=== PATIENT | male | born 1965 | race African-American/Black ===

== ENCOUNTER 2016-12-13 02:49 | Emergency (ER) | payer OTHER ==
[~2016-12-13] VITALS: Ht 172.7 cm; Wt 81.8 kg
[~2016-12-13 02:49] MED LIST: LISI-618 PO; OMEP20CA4 PO; QUET25TA PO
[2016-12-13 04:46] LABS: BASOPHILS % (AUTO) 0.2 % (0.0-2.0); EOSINOPHILS % (AUTO) 1.6 % (1.0-6.0); HEMATOCRIT 30.3 % (41-53); HEMOGLOBIN 9.4 g/dL (13.5-17.5); LYMPHOCYTES % (AUTO) 14.2 % (22.0-44.0); MEAN CORPUSCULAR HEMOGLOBIN 25.6 pg (26.0-34.0); MEAN CORPUSCULAR HGB CONC 31.1 G/dL (31.0-37.0); MEAN CORPUSCULAR VOLUME 83 fL (80-100); MONOCYTES # (AUTO) 0.6 K/uL (0.1-1.0); MONOCYTES % (AUTO) 8.7 % (2.0-9.0); NEUTROPHILS # (AUTO) 5.2 K/uL (1.8-7.7); NEUTROPHILS % (AUTO) 75.3 % (40.0-70.0); PLATELET COUNT (AUTO) 319 K/uL (150-450); RED BLOOD CELL COUNT(AUTO) 3.67 MIL/uL (4.50-5.90); RED CELL DISTRIBUTION WIDTH 18.7 % (11.5-14.5)
[2016-12-13 04:48] LABS: ANION GAP 5 mmol/L (8-16); CALCIUM, TOTAL 8.5 mg/dL (8.8-10.5); CARBON DIOXIDE 31 mmol/L (22-29); CHLORIDE 103 mmol/L (98-107); CREATININE 1.54 mg/dL (0.60-1.30); GLOMERULAR FILTR. RATE CALC 58 mL/min (>60); POTASSIUM 3.8 mmol/L (3.5-5.1); SODIUM SERUM 139 mmol/L (136-145); UREA NITROGEN, BLOOD 13 mg/dL (7-18)
[2016-12-13 04:58] LABS: ALANINE AMINOTRANSFERASE 34 U/L (12-78); ALBUMIN 3.5 g/dL (3.4-5.0); ASPARTATE AMINOTRANSFERASE 25 U/L (15-37); BILIRUBIN,TOTAL 0.2 mg/dL (0.1-1.0); TOTAL PROTEIN, SERUM 7.4 g/dL (6.4-8.2)
[2016-12-13 05:02] VITALS: BP 130/87
[2016-12-13 05:12] LABS: B-TYPE NATRIURETIC PEPTIDE 13 pg/mL (0-100)
[2016-12-13] MEDS ORDERED: LORazepam 2 MG TABLET PO ONE (05:15)
== END 2016-12-13 05:21 | disposition home or self-care (01) ==
LOC: EMS 02:51
DX: F25.9 Schizoaffective disorder, unspecified (principal); F41.9 Anxiety disorder, unspecified; F17.200 Nicotine dependence, unspecified, uncomplicated
CPT/HCPCS: 36415; 71010; 80053; 80307; 83880; 84484; 85025; 93005; 99285; G0480

== ENCOUNTER 2017-03-03 16:12 | Inpatient (IN) | payer MEDICAID, OTHER ==
[~2017-03-03] VITALS: Ht 172.7 cm; Wt 106.7 kg
[2017-03-03 20:32] LABS: BASOPHILS % (AUTO) 0.4 % (0.0-2.0); EOSINOPHILS % (AUTO) 1.3 % (1.0-6.0); HEMATOCRIT 31.1 % (41-53); HEMOGLOBIN 10.1 g/dL (13.5-17.5); LYMPHOCYTES # (AUTO) 1.5 K/uL (1.0-4.8); MEAN CORPUSCULAR HGB CONC 32.6 G/dL (31.0-37.0); MEAN CORPUSCULAR VOLUME 80 fL (80-100); MONOCYTES # (AUTO) 0.5 K/uL (0.1-1.0); MONOCYTES % (AUTO) 6.9 % (2.0-9.0); NEUTROPHILS # (AUTO) 4.9 K/uL (1.8-7.7); NEUTROPHILS % (AUTO) 70.4 % (40.0-70.0); PLATELET COUNT (AUTO) 251 K/uL (150-450); RED BLOOD CELL COUNT(AUTO) 3.89 MIL/uL (4.50-5.90); RED CELL DISTRIBUTION WIDTH 19.9 % (11.5-14.5)
[2017-03-03 20:39] LABS: ANION GAP 9 mmol/L (8-16); CALCIUM, TOTAL 9.3 mg/dL (8.8-10.5); CARBON DIOXIDE 28 mmol/L (22-29); CHLORIDE 105 mmol/L (98-107); GLOMERULAR FILTR. RATE CALC > 60 mL/min (>60); POTASSIUM 3.9 mmol/L (3.5-5.1); SODIUM SERUM 142 mmol/L (136-145); UREA NITROGEN, BLOOD 10 mg/dL (7-18)
[2017-03-03 20:45] LABS: ALANINE AMINOTRANSFERASE 27 U/L (12-78); ALBUMIN 3.9 g/dL (3.4-5.0); ASPARTATE AMINOTRANSFERASE 29 U/L (15-37); BILIRUBIN,TOTAL 0.3 mg/dL (0.1-1.0)
[2017-03-03 21:27] LABS: RBC MORPHOLOGY COMMENT ABNORMAL RBC MORPH
[2017-03-03] MEDS ORDERED: ZOLPIDEM TARTRATE 10 MG TABLET PO PRN (21:30)
[2017-03-03] MEDS: QUEtiapine FUMARATE 300 MG TABLET PO SCH (21:54)
[2017-03-03 22:01] LABS: CHOL/HDL RATIO 2.4 (4.2-7.3); THYROID STIMULATING HORMONE 1.58 uIU/mL (0.36-3.74)
[2017-03-04 01:35] VITALS: BP 136/91
[2017-03-04] MEDS: LORazepam 2 MG TABLET PO PRN (07:40)
[2017-03-04] MEDS: ChlorproMAZINE HCL 100 MG TABLET PO PRN (07:40)
[2017-03-04 09:16] VITALS: BP 126/89
[2017-03-04] MEDS ORDERED: IBUPROFEN 600 MG TABLET PO PRN (11:15)
[2017-03-04] MEDS ORDERED: MAGNESIUM HYDROXIDE SUSPENSION 30 ML UDCUP PO PRN (11:15)
[2017-03-04] MEDS ORDERED: BACITRACIN 28.4 GM OINTMENT TP PRN (11:15)
[2017-03-04] MEDS ORDERED: ALBUTEROL SULFATE HFA 90 MCG/PUFF 8 GM INHALER IH PRN (11:15)
[2017-03-04] MEDS ORDERED: LOPERAMIDE HCL 2 MG CAPSULE PO PRN (11:15)
[2017-03-04] MEDS ORDERED: ACETAMINOPHEN 325 MG TABLET PO PRN (11:15)
[2017-03-04] MEDS ORDERED: BENZOCAINE/MENTHOL LOZENGE [8 LOZENGES/PACKET] MM PRN (11:15)
[2017-03-04] MEDS ORDERED: PETROLATUM,WHITE 71 GM JELLY TP PRN (11:15)
[2017-03-04] MEDS ORDERED: ONDANSETRON HCL 4 MG TABLET PO PRN (11:15)
[2017-03-04] MEDS ORDERED: CloNIDine HCL 0.1 MG TABLET PO PRN (11:15)
[2017-03-04] MEDS ORDERED: MAG HYDROX/AL HYDROX/SIMETH ES 30 ML SUSPENSION UDCUP PO PRN (11:15)
[2017-03-04] MEDS: FERROUS SULFATE 325 MG EC TABLET PO SCH (17:07)
[2017-03-04 18:43] VITALS: BP 149/99
[2017-03-04] MEDS: QUEtiapine FUMARATE 300 MG TABLET PO SCH (20:27)
[2017-03-05] MEDS: FERROUS SULFATE 325 MG EC TABLET PO SCH ×2 (06:36→17:13)
[2017-03-05 08:31] VITALS: BP 110/72
[2017-03-05] MEDS: LORazepam 2 MG TABLET PO PRN (10:18)
[2017-03-05] MEDS: TERBINAFINE HCL 1% 30 GM CREAM TP SCH (10:19)
[2017-03-05] MEDS: CHOLECALCIFEROL (VIT D3) 1,000 UNITS TABLET PO SCH (10:19)
[2017-03-05] MEDS ORDERED: FluPHENAZine HCL 2.5 MG/ML INJ IM ONE (20:30)
[2017-03-05] MEDS ORDERED: LORazepam 2 MG/ML VIAL IM ONE (20:30)
[2017-03-05] MEDS ORDERED: DiphenhydrAMINE HCL 50 MG/ML VIAL IM ONE (20:30)
[2017-03-05 20:56] VITALS: BP 119/74
[2017-03-05] MEDS ORDERED: QUEtiapine FUMARATE 200 MG TABLET PO SCH (21:00)
[2017-03-06] MEDS: FERROUS SULFATE 325 MG EC TABLET PO SCH ×2 (07:01→16:48)
[2017-03-06] MEDS: CHOLECALCIFEROL (VIT D3) 1,000 UNITS TABLET PO SCH (08:14)
[2017-03-06] MEDS: TERBINAFINE HCL 1% 30 GM CREAM TP SCH (08:14)
[2017-03-06 08:37] VITALS: BP 152/93
[2017-03-06 08:46] VITALS: BP 157/93
[2017-03-06] MEDS: QUEtiapine FUMARATE 200 MG TABLET PO SCH (20:02)
[2017-03-07] MEDS: FERROUS SULFATE 325 MG EC TABLET PO SCH ×2 (07:08→16:34)
[2017-03-07 08:00] VITALS: BP 90/60
[2017-03-07] MEDS: CHOLECALCIFEROL (VIT D3) 1,000 UNITS TABLET PO SCH (08:14)
[2017-03-07] MEDS: LORazepam 2 MG TABLET PO PRN (08:15)
[2017-03-07] MEDS: TERBINAFINE HCL 1% 30 GM CREAM TP SCH (12:25)
[2017-03-07 16:00] VITALS: BP 130/93
[2017-03-07] MEDS: QUEtiapine FUMARATE 200 MG TABLET PO SCH (20:39)
[2017-03-08 00:04] VITALS: BP 143/82
[2017-03-08] MEDS: FERROUS SULFATE 325 MG EC TABLET PO SCH ×2 (06:51→16:31)
[2017-03-08] MEDS: LORazepam 2 MG TABLET PO PRN ×2 (07:44→16:31)
[2017-03-08] MEDS: CHOLECALCIFEROL (VIT D3) 1,000 UNITS TABLET PO SCH (08:07)
[2017-03-08 09:00] VITALS: BP 136/100
[2017-03-08] MEDS: TERBINAFINE HCL 1% 30 GM CREAM TP SCH (13:02)
[2017-03-08 13:51] VITALS: BP 128/105
[2017-03-08 16:00] VITALS: BP 153/90
[2017-03-09] MEDS: FERROUS SULFATE 325 MG EC TABLET PO SCH ×2 (07:04→16:46)
[2017-03-09 08:03] VITALS: BP 143/99
[2017-03-09] MEDS: CHOLECALCIFEROL (VIT D3) 1,000 UNITS TABLET PO SCH (09:29)
[2017-03-09] MEDS: TERBINAFINE HCL 1% 30 GM CREAM TP SCH (09:29)
[2017-03-09 17:24] VITALS: BP 142/95
[2017-03-09] MEDS: QUEtiapine FUMARATE 300 MG TABLET PO SCH (20:47)
[2017-03-10] MEDS: FERROUS SULFATE 325 MG EC TABLET PO SCH ×2 (07:00→17:30)
[2017-03-10] MEDS: TERBINAFINE HCL 1% 30 GM CREAM TP SCH (07:54)
[2017-03-10] MEDS: CHOLECALCIFEROL (VIT D3) 1,000 UNITS TABLET PO SCH (07:54)
[2017-03-10 08:11] VITALS: BP 146/81
[2017-03-10] MEDS: LORazepam 2 MG TABLET PO PRN (15:42)
[2017-03-10 16:38] VITALS: BP 133/89
[2017-03-10] MEDS: QUEtiapine FUMARATE 300 MG TABLET PO SCH (20:00)
[2017-03-11] MEDS: FERROUS SULFATE 325 MG EC TABLET PO SCH ×2 (07:03→17:12)
[2017-03-11 08:00] VITALS: BP 144/79
[2017-03-11] MEDS: CHOLECALCIFEROL (VIT D3) 1,000 UNITS TABLET PO SCH (10:19)
[2017-03-11] MEDS: ChlorproMAZINE HCL 100 MG TABLET PO PRN (10:19)
[2017-03-11] MEDS: TERBINAFINE HCL 1% 30 GM CREAM TP SCH (10:19)
[2017-03-11] MEDS: LORazepam 2 MG TABLET PO PRN ×2 (10:19→17:29)
[2017-03-11 17:30] VITALS: BP 133/91
[2017-03-11] MEDS: QUEtiapine FUMARATE 300 MG TABLET PO SCH (21:29)
[2017-03-11] MEDS: OXcarbazepine 300 MG TABLET PO SCH (21:30)
[2017-03-12] MEDS: FERROUS SULFATE 325 MG EC TABLET PO SCH ×2 (06:52→16:56)
[2017-03-12] MEDS: CHOLECALCIFEROL (VIT D3) 1,000 UNITS TABLET PO SCH (08:09)
[2017-03-12] MEDS: ChlorproMAZINE HCL 100 MG TABLET PO PRN (08:09)
[2017-03-12 09:07] VITALS: BP 143/89
[2017-03-12] MEDS: TERBINAFINE HCL 1% 30 GM CREAM TP SCH (10:42)
[2017-03-12 16:00] VITALS: BP 150/91
[2017-03-12] MEDS: LORazepam 2 MG TABLET PO PRN (16:18)
[2017-03-12] MEDS: OXcarbazepine 300 MG TABLET PO SCH (20:59)
[2017-03-12] MEDS: QUEtiapine FUMARATE 300 MG TABLET PO SCH (20:59)
[2017-03-13 05:59] VITALS: BP 136/92
[2017-03-13] MEDS: FERROUS SULFATE 325 MG EC TABLET PO SCH (06:53)
[2017-03-13] MEDS: CHOLECALCIFEROL (VIT D3) 1,000 UNITS TABLET PO SCH (08:42)
[2017-03-13] MEDS: TERBINAFINE HCL 1% 30 GM CREAM TP SCH (08:42)
[2017-03-13 08:46] VITALS: BP 149/97
[2017-03-13] MEDS ORDERED: OXCA300T PO (12:02)
[2017-03-13] MEDS ORDERED: FERR-89 PO (12:05)
[2017-03-13] MEDS ORDERED: VITAD1000 PO (12:05)
[2017-03-13] MEDS ORDERED: TERB250 PO (12:06)
[2017-03-13] MEDS ORDERED: TERB15CR18 TP (12:08)
[2017-03-13] MEDS ORDERED: TERB250T4 PO (12:08)
[2017-03-13] MEDS ORDERED: QUET300T2 PO (12:13)
[2017-03-13] MEDS ORDERED: LISI-662 PO (13:07)
[2017-03-13] MEDS ORDERED: OMEP20 PO (13:08)
== END 2017-03-13 13:00 | disposition home or self-care (01) | DRG 750 ==
LOC: EMS 16:14 → 3EI 22:09 → 3EC 03-05 22:59
PROVIDERS: ADMIT Psychiatry & Neurology Psychiatry; ATTEND Psychiatry & Neurology Psychiatry
DX: F20.1 Disorganized schizophrenia (principal); I10 Essential (primary) hypertension; Z91.19 Patient's noncompliance with other medical treatment and regimen; E55.9 Vitamin D deficiency, unspecified; B35.3 Tinea pedis; F17.200 Nicotine dependence, unspecified, uncomplicated; E66.9 Obesity, unspecified; D50.9 Iron deficiency anemia, unspecified; G47.00 Insomnia, unspecified; K21.9 Gastro-esophageal reflux disease without esophagitis; K59.00 Constipation, unspecified; M79.671 Pain in right foot; M79.672 Pain in left foot; R73.03 Prediabetes; Z56.0 Unemployment, unspecified; Z71.6 Tobacco abuse counseling; Z68.35 Body mass index [BMI] 35.0-35.9, adult; Z79.899 Other long term (current) drug therapy
CPT/HCPCS: 84439; 84443; 99285; G0480; J1200; J2060; J3490; Q0162

== ENCOUNTER 2017-06-16 15:24 | Emergency (ER) | payer MEDICAID, OTHER ==
[~2017-06-16] VITALS: Ht 188 cm; Wt 95.5 kg
[~2017-06-16 15:24] MED LIST changes: +FERR-89 PO; -LISI-618 PO; +LISI-662 PO; +OMEP20 PO; -OMEP20CA4 PO; +OXCA300T PO; -QUET25TA PO; +QUET300T2 PO; +TERB15CR18 TP; +VITAD1000 PO
[2017-06-16 16:19] LABS: BASOPHILS % (AUTO) 0.3 % (0.0-2.0); EOSINOPHILS % (AUTO) 2.4 % (1.0-6.0); HEMATOCRIT 37.5 % (41-53); HEMOGLOBIN 12.5 g/dL (13.5-17.5); LYMPHOCYTES # (AUTO) 1.4 K/uL (1.0-4.8); LYMPHOCYTES % (AUTO) 32.3 % (22.0-44.0); MEAN CORPUSCULAR HEMOGLOBIN 29.7 pg (26.0-34.0); MEAN CORPUSCULAR HGB CONC 33.3 G/dL (31.0-37.0); MEAN CORPUSCULAR VOLUME 89 fL (80-100); MONOCYTES # (AUTO) 0.4 K/uL (0.1-1.0); NEUTROPHILS # (AUTO) 2.5 K/uL (1.8-7.7); PLATELET COUNT (AUTO) 244 K/uL (150-450); RED BLOOD CELL COUNT(AUTO) 4.21 MIL/uL (4.50-5.90); RED CELL DISTRIBUTION WIDTH 19.1 % (11.5-14.5); WHITE BLOOD COUNT (AUTO) 4.4 K/uL (4.5-11.0)
[2017-06-16] MEDS ORDERED: HALOPERIDOL 5 MG TABLET PO ONE (16:30)
[2017-06-16] MEDS ORDERED: LORazepam 2 MG TABLET PO ONE (16:30)
[2017-06-16] MEDS ORDERED: RAPID SEQUENCE KIT [RSI] 1 EACH KIT ONE ×2 (16:34)
[2017-06-16] MEDS ORDERED: SUCCINYLCHOLINE CHLORIDE 20 MG/ML 10 ML VIAL ONE (16:35)
[2017-06-16 16:37] LABS: ANION GAP 9 mmol/L (8-16); CALCIUM, TOTAL 8.7 mg/dL (8.8-10.5); CARBON DIOXIDE 29 mmol/L (22-29); CHLORIDE 100 mmol/L (98-107); CREATININE 1.11 mg/dL (0.60-1.30); GLOMERULAR FILTR. RATE CALC > 60 mL/min (>60); POTASSIUM 3.5 mmol/L (3.5-5.1); SODIUM SERUM 138 mmol/L (136-145); UREA NITROGEN, BLOOD 11 mg/dL (7-18)
[2017-06-16 16:44] LABS: ALANINE AMINOTRANSFERASE 28 U/L (12-78); ALBUMIN 3.6 g/dL (3.4-5.0); ASPARTATE AMINOTRANSFERASE 25 U/L (15-37); BILIRUBIN,TOTAL 0.4 mg/dL (0.1-1.0); TOTAL PROTEIN, SERUM 7.2 g/dL (6.4-8.2)
[2017-06-16 18:08] VITALS: BP 148/94
== END 2017-06-16 18:46 | disposition home or self-care (01) ==
LOC: EMS 15:27
DX: F20.9 Schizophrenia, unspecified (principal); F15.129 Other stimulant abuse with intoxication, unspecified; Z77.22 Contact with and (suspected) exposure to environmental tobacco smoke (acute) (chronic)
CPT/HCPCS: 36415; 80053; 80307; 85025; 99284; G0480; J0330

== ENCOUNTER 2018-12-28 13:33 | Inpatient (IN) | payer MEDICAID, OTHER ==
[~2018-12-28] VITALS: Ht 188 cm; Wt 87.7 kg
[~2018-12-28 13:33] MED LIST changes: -OXCA300T PO; +OXCA300T29 PO
[2018-12-28 14:45] LABS: BASOPHILS % (AUTO) 0.1 % (0.0-2.0); EOSINOPHILS % (AUTO) 0.1 % (1.0-6.0); HEMATOCRIT 31.6 % (41-53); HEMOGLOBIN 10.5 g/dL (13.5-17.5); LYMPHOCYTES # (AUTO) 1.1 K/uL (1.0-4.8); LYMPHOCYTES % (AUTO) 14.5 % (22.0-44.0); MEAN CORPUSCULAR HEMOGLOBIN 29.5 pg (26.0-34.0); MEAN CORPUSCULAR HGB CONC 33.2 G/dL (31.0-37.0); MEAN CORPUSCULAR VOLUME 89 fL (80-100); MONOCYTES # (AUTO) 0.5 K/uL (0.1-1.0); MONOCYTES % (AUTO) 6.6 % (2.0-9.0); NEUTROPHILS # (AUTO) 5.7 K/uL (1.8-7.7); NEUTROPHILS % (AUTO) 78.7 % (40.0-70.0); PLATELET COUNT (AUTO) 239 K/uL (150-450); RED BLOOD CELL COUNT(AUTO) 3.54 MIL/uL (4.50-5.90); RED CELL DISTRIBUTION WIDTH 16.1 % (11.5-14.5)
[2018-12-28 14:57] LABS: B-TYPE NATRIURETIC PEPTIDE 220 pg/mL (0-100)
[2018-12-28 14:58] LABS: ANION GAP 8 mmol/L (8-16); CALCIUM, TOTAL 8.7 mg/dL (8.8-10.5); CARBON DIOXIDE 32 mmol/L (22-29); CHLORIDE 103 mmol/L (98-107); CREATININE 1.27 mg/dL (0.60-1.30); GLOMERULAR FILTR. RATE CALC > 60 mL/min (>60); GLUCOSE,RANDOM 91 mg/dL (70-110); POTASSIUM 3.1 mmol/L (3.5-5.1); SODIUM SERUM 143 mmol/L (136-145); UREA NITROGEN, BLOOD 59 mg/dL (7-18)
[2018-12-28 15:00] LABS: INR 1.1 (0.9-1.1); PROTHROMBIN TIME 11.1 SEC (9.4-11.6)
[2018-12-28 15:04] LABS: ALANINE AMINOTRANSFERASE 28 U/L (12-78); ALBUMIN 3.2 g/dL (3.4-5.0); ALKALINE PHOSPHATASE 65 U/L (46-116); ASPARTATE AMINOTRANSFERASE 31 U/L (15-37); BILIRUBIN,TOTAL 0.4 mg/dL (0.1-1.0); TOTAL PROTEIN, SERUM 6.7 g/dL (6.4-8.2)
[2018-12-28 15:19] LABS: APPEARANCE,URINE CLEAR (CLEAR); BILIRUBIN,URINE NEGATIVE (NEGATIVE); GLUCOSE, URINE (UA) NEGATIVE (NEGATIVE); KETONES,URINE NEGATIVE (NEGATIVE); LEUKOCYTE ESTERASE ,URINE NEGATIVE (NEGATIVE); NITRATE,URINE NEGATIVE (NEGATIVE); OCCULT BLOOD,URINE NEGATIVE (NEGATIVE); PROTEIN,URINE NEGATIVE (NEGATIVE)
[2018-12-28 15:22] LABS: AMPHET/METH SCREEN,URINE NEGATIVE (NEGATIVE); BARBITURATE SCREEN, URINE NEGATIVE (NEGATIVE); BENZODIAZEPINES SCREEN,URINE NEGATIVE (NEGATIVE); CANNABINOID SCREEN,URINE NEGATIVE (NEGATIVE); COCAINE SCREEN,URINE NEGATIVE (NEGATIVE); METHADONE SCREEN, URINE NEGATIVE (NEGATIVE); OPIATE SCREEN,URINE NEGATIVE (NEGATIVE)
[2018-12-28 15:25] LABS: PHENCYCLIDINE SCREEN,URINE NEGATIVE (NEGATIVE)
[2018-12-28] MEDS ORDERED: POTASSIUM CHLORIDE 20 MEQ ER TABLET PO ONE (16:00)
[2018-12-28] MEDS ORDERED: QUEtiapine FUMARATE 100 MG TABLET PO ONE (17:15)
[2018-12-28] MEDS ORDERED: ChlorproMAZINE HCL 100 MG TABLET PO PRN (17:45)
[2018-12-28] MEDS ORDERED: ZOLPIDEM TARTRATE 5 MG TABLET PO PRN (17:45)
[2018-12-28] MEDS ORDERED: LORazepam 2 MG/ML VIAL IM ONE (20:15)
[2018-12-28] MEDS ORDERED: DiphenhydrAMINE HCL 50 MG/ML VIAL IM ONE (20:15)
[2018-12-28] MEDS ORDERED: HALOPERIDOL LACTATE 5 MG/ML VIAL IM ONE (20:15)
[2018-12-28] MEDS ORDERED: IBUPROFEN 600 MG TABLET PO PRN (22:00)
[2018-12-28] MEDS ORDERED: ACETAMINOPHEN 325 MG TABLET PO PRN (22:00)
[2018-12-28] MEDS ORDERED: ONDANSETRON HCL 4 MG TABLET PO PRN (22:00)
[2018-12-28] MEDS ORDERED: LOPERAMIDE HCL 2 MG CAPSULE PO PRN (22:00)
[2018-12-28] MEDS ORDERED: MAGNESIUM HYDROXIDE SUSPENSION 30 ML UDCUP PO PRN (22:00)
[2018-12-28] MEDS ORDERED: MAG HYDROX/AL HYDROX/SIMETH ES 30 ML SUSPENSION UDCUP PO PRN (22:00)
[2018-12-28] MEDS ORDERED: BACITRACIN 28.4 GM OINTMENT TP PRN (22:00)
[2018-12-28] MEDS ORDERED: PETROLATUM,WHITE 28 GM JELLY TP PRN (22:00)
[2018-12-28] MEDS ORDERED: BENZOCAINE/MENTHOL LOZENGE MM PRN (22:00)
[2018-12-28] MEDS ORDERED: ALBUTEROL SULFATE HFA 90 MCG/PUFF 8 GM INHALER IH PRN (22:00)
[2018-12-28] MEDS ORDERED: CloNIDine HCL 0.1 MG TABLET PO PRN (22:00)
[2018-12-28] MEDS: QUEtiapine FUMARATE 300 MG TABLET PO SCH (22:19)
[2018-12-29 06:39] VITALS: BP 100/69
[2018-12-29 08:09] LABS: ANION GAP 7 mmol/L (8-16); CALCIUM, TOTAL 8.6 mg/dL (8.8-10.5); CARBON DIOXIDE 34 mmol/L (22-29); CHLORIDE 103 mmol/L (98-107); CHOL/HDL RATIO 2.7 (4.2-7.3); CHOLESTEROL 110 mg/dL (131-200); CREATININE 1.24 mg/dL (0.60-1.30); GLOMERULAR FILTR. RATE CALC > 60 mL/min (>60); GLUCOSE,RANDOM 82 mg/dL (70-110); HDL CHOLESTEROL 41 mg/dL (40-60); LDL CHOL (CALC.) 61 mg/dL (0-130); POTASSIUM 3.3 mmol/L (3.5-5.1); SODIUM SERUM 144 mmol/L (136-145); TRIGLYCERIDES 39 mg/dL (15-150); UREA NITROGEN, BLOOD 38 mg/dL (7-18)
[2018-12-29] MEDS: DOCUSATE SODIUM 100 MG CAPSULE PO SCH (08:29)
[2018-12-29] MEDS: OMEPRAZOLE 20 MG CAPSULE PO SCH (08:29)
[2018-12-29] MEDS ORDERED: POTASSIUM CHLORIDE 20 MEQ ER TABLET PO ONE (09:30)
[2018-12-29 16:12] VITALS: BP 129/70
[2018-12-29] MEDS: LORazepam 2 MG TABLET PO PRN ×2 (16:18→20:22)
[2018-12-29] MEDS: QUEtiapine FUMARATE 300 MG TABLET PO SCH (20:22)
[2018-12-30 08:00] VITALS: BP 116/66
[2018-12-30] MEDS: DOCUSATE SODIUM 100 MG CAPSULE PO SCH (08:13)
[2018-12-30] MEDS: OMEPRAZOLE 20 MG CAPSULE PO SCH (08:13)
[2018-12-30] MEDS: CHOLECALCIFEROL (VIT D3) 1,000 UNITS TABLET PO SCH (08:13)
[2018-12-30] MEDS: LORazepam 2 MG TABLET PO PRN (16:22)
[2018-12-30 17:27] VITALS: BP 136/80
[2018-12-30] MEDS: QUEtiapine FUMARATE 300 MG TABLET PO SCH (20:37)
[2018-12-30] MEDS: RisperiDONE 1 MG TABLET PO SCH (20:37)
[2018-12-31 06:15] VITALS: BP 142/89
[2018-12-31] MEDS: LORazepam 2 MG TABLET PO PRN ×2 (08:21→16:47)
[2018-12-31] MEDS: RisperiDONE 1 MG TABLET PO SCH (08:21)
[2018-12-31] MEDS: DOCUSATE SODIUM 100 MG CAPSULE PO SCH (08:21)
[2018-12-31] MEDS: OMEPRAZOLE 20 MG CAPSULE PO SCH (08:21)
[2018-12-31] MEDS: CHOLECALCIFEROL (VIT D3) 1,000 UNITS TABLET PO SCH (08:21)
[2018-12-31 08:29] VITALS: BP 124/69
[2018-12-31] MEDS ORDERED: HydrOXYzine PAMOATE 50 MG CAPSULE PO PRN (10:00)
[2018-12-31] MEDS ORDERED: GuaiFENesin/D-METHORPHAN [SUGAR-FREE] 200-20MG/10 ML SYRUP UDCUP PO PRN (10:00)
[2018-12-31] MEDS ORDERED: LOPERAMIDE HCL 2 MG CAPSULE PO PRN (10:00)
[2018-12-31 16:05] VITALS: BP 139/75
[2018-12-31] MEDS: THIAMINE HCL 100 MG TABLET PO SCH (16:47)
[2018-12-31] MEDS: QUEtiapine FUMARATE 300 MG TABLET PO SCH (20:11)
[2019-01-01 05:56] VITALS: BP 136/72
[2019-01-01 08:11] VITALS: BP 140/99
[2019-01-01] MEDS: FOLIC ACID 1 MG TABLET PO SCH (08:21)
[2019-01-01] MEDS: DOCUSATE SODIUM 100 MG CAPSULE PO SCH (08:21)
[2019-01-01] MEDS: MULTIVITAMINS WITH MINERALS, THERAPEUTIC TABLET PO SCH (08:21)
[2019-01-01] MEDS: OMEPRAZOLE 20 MG CAPSULE PO SCH (08:22)
[2019-01-01] MEDS: LORazepam 2 MG TABLET PO PRN ×2 (08:22→14:37)
[2019-01-01] MEDS: THIAMINE HCL 100 MG TABLET PO SCH ×2 (08:22→16:37)
[2019-01-01] MEDS: CHOLECALCIFEROL (VIT D3) 1,000 UNITS TABLET PO SCH (08:22)
[2019-01-01 16:05] VITALS: BP 140/82
[2019-01-01] MEDS: QUEtiapine FUMARATE 300 MG TABLET PO SCH (20:22)
[2019-01-01] MEDS: DiphenhydrAMINE HCL 25 MG CAPSULE PO SCH (20:22)
[2019-01-01] MEDS ORDERED: RisperiDONE 2 MG TABLET PO SCH (21:00)
[2019-01-02 00:43] VITALS: BP 141/93
[2019-01-02] MEDS: OMEPRAZOLE 20 MG CAPSULE PO SCH (08:17)
[2019-01-02] MEDS: LORazepam 2 MG TABLET PO PRN ×3 (08:17→20:37)
[2019-01-02] MEDS: DOCUSATE SODIUM 100 MG CAPSULE PO SCH (08:18)
[2019-01-02] MEDS: THIAMINE HCL 100 MG TABLET PO SCH ×2 (08:18→16:17)
[2019-01-02] MEDS: FOLIC ACID 1 MG TABLET PO SCH (08:18)
[2019-01-02] MEDS: MULTIVITAMINS WITH MINERALS, THERAPEUTIC TABLET PO SCH (08:18)
[2019-01-02] MEDS: CHOLECALCIFEROL (VIT D3) 1,000 UNITS TABLET PO SCH (08:18)
[2019-01-02 08:45] VITALS: BP 129/73
[2019-01-02 16:58] VITALS: BP 136/90
[2019-01-02] MEDS: QUEtiapine FUMARATE 200 MG TABLET PO SCH (20:37)
[2019-01-02] MEDS: DiphenhydrAMINE HCL 25 MG CAPSULE PO SCH (20:37)
[2019-01-02] MEDS ORDERED: RisperiDONE 3 MG TABLET PO SCH (21:00)
[2019-01-03 06:22] VITALS: BP 139/81
[2019-01-03] MEDS: CHOLECALCIFEROL (VIT D3) 1,000 UNITS TABLET PO SCH (08:03)
[2019-01-03] MEDS: MULTIVITAMINS WITH MINERALS, THERAPEUTIC TABLET PO SCH (08:03)
[2019-01-03] MEDS: THIAMINE HCL 100 MG TABLET PO SCH ×2 (08:04→16:15)
[2019-01-03] MEDS: DOCUSATE SODIUM 100 MG CAPSULE PO SCH (08:04)
[2019-01-03] MEDS: OMEPRAZOLE 20 MG CAPSULE PO SCH (08:04)
[2019-01-03] MEDS: FOLIC ACID 1 MG TABLET PO SCH (08:05)
[2019-01-03 08:18] VITALS: BP 126/83
[2019-01-03 16:06] VITALS: BP 142/89
[2019-01-03] MEDS: LORazepam 2 MG TABLET PO PRN (16:15)
[2019-01-03] MEDS: QUEtiapine FUMARATE 200 MG TABLET PO SCH (20:05)
[2019-01-03] MEDS: DiphenhydrAMINE HCL 25 MG CAPSULE PO SCH (20:05)
[2019-01-03] MEDS ORDERED: RisperiDONE 4 MG TABLET PO SCH (21:00)
[2019-01-04 06:21] VITALS: BP 133/86
[2019-01-04 08:14] VITALS: BP 117/82
[2019-01-04] MEDS: MULTIVITAMINS WITH MINERALS, THERAPEUTIC TABLET PO SCH (08:26)
[2019-01-04] MEDS: FOLIC ACID 1 MG TABLET PO SCH (08:26)
[2019-01-04] MEDS: OMEPRAZOLE 20 MG CAPSULE PO SCH (08:26)
[2019-01-04] MEDS: CHOLECALCIFEROL (VIT D3) 1,000 UNITS TABLET PO SCH (08:26)
[2019-01-04] MEDS: DOCUSATE SODIUM 100 MG CAPSULE PO SCH (08:26)
[2019-01-04] MEDS: THIAMINE HCL 100 MG TABLET PO SCH ×2 (08:27→16:02)
[2019-01-04] MEDS: LORazepam 2 MG TABLET PO PRN ×2 (16:02→20:30)
[2019-01-04] MEDS: OLANZapine 5 MG RAPDIS TABLET PO PRN (16:02)
[2019-01-04 16:03] VITALS: BP 141/90
[2019-01-04] MEDS: QUEtiapine FUMARATE 200 MG TABLET PO SCH (20:29)
[2019-01-04] MEDS: DiphenhydrAMINE HCL 25 MG CAPSULE PO SCH (20:29)
[2019-01-04] MEDS ORDERED: RisperiDONE 2 MG TABLET PO SCH (21:00)
[2019-01-05 00:18] VITALS: BP 136/84
[2019-01-05 08:15] VITALS: BP 141/90
[2019-01-05] MEDS: FOLIC ACID 1 MG TABLET PO SCH (08:32)
[2019-01-05] MEDS: DOCUSATE SODIUM 100 MG CAPSULE PO SCH (08:32)
[2019-01-05] MEDS: OMEPRAZOLE 20 MG CAPSULE PO SCH (08:32)
[2019-01-05] MEDS: MULTIVITAMINS WITH IRON TABLET PO SCH (08:32)
[2019-01-05] MEDS: CHOLECALCIFEROL (VIT D3) 1,000 UNITS TABLET PO SCH (08:32)
[2019-01-05] MEDS: THIAMINE HCL 100 MG TABLET PO SCH ×2 (08:32→16:23)
[2019-01-05] MEDS ORDERED: LORazepam 2 MG/ML VIAL ONE (13:57)
[2019-01-05] MEDS ORDERED: DiphenhydrAMINE HCL 50 MG/ML VIAL ONE (13:58)
[2019-01-05] MEDS ORDERED: DiphenhydrAMINE HCL 50 MG/ML VIAL IM ONE (14:00)
[2019-01-05] MEDS ORDERED: LORazepam 2 MG/ML VIAL IM ONE (14:00)
[2019-01-05 16:14] VITALS: BP 142/96
[2019-01-05] MEDS: DiphenhydrAMINE HCL 25 MG CAPSULE PO SCH (20:00)
[2019-01-05] MEDS: RisperiDONE 2 MG TABLET PO SCH (20:01)
[2019-01-05] MEDS: QUEtiapine FUMARATE 200 MG TABLET PO SCH (20:01)
[2019-01-06 06:24] VITALS: BP 143/92
[2019-01-06 08:12] VITALS: BP 109/98
[2019-01-06] MEDS: OMEPRAZOLE 20 MG CAPSULE PO SCH (08:20)
[2019-01-06] MEDS: DOCUSATE SODIUM 100 MG CAPSULE PO SCH (08:20)
[2019-01-06] MEDS: THIAMINE HCL 100 MG TABLET PO SCH ×2 (08:20→16:16)
[2019-01-06] MEDS: CHOLECALCIFEROL (VIT D3) 1,000 UNITS TABLET PO SCH (08:20)
[2019-01-06] MEDS: MULTIVITAMINS WITH IRON TABLET PO SCH (08:20)
[2019-01-06] MEDS: FOLIC ACID 1 MG TABLET PO SCH (08:25)
[2019-01-06 16:09] VITALS: BP 141/93
[2019-01-06] MEDS: QUEtiapine FUMARATE 200 MG TABLET PO SCH (20:23)
[2019-01-06] MEDS: RisperiDONE 2 MG TABLET PO SCH (20:23)
[2019-01-06] MEDS: DiphenhydrAMINE HCL 25 MG CAPSULE PO SCH (20:23)
[2019-01-07 06:21] VITALS: BP 135/86
[2019-01-07 08:13] VITALS: BP 140/85
[2019-01-07] MEDS ORDERED: PALIPERIDONE PALMITATE 234 MG/1.5 ML SYRINGE IM ONE (09:00)
[2019-01-07] MEDS: FOLIC ACID 1 MG TABLET PO SCH (09:16)
[2019-01-07] MEDS: MULTIVITAMINS WITH IRON TABLET PO SCH (09:16)
[2019-01-07] MEDS: THIAMINE HCL 100 MG TABLET PO SCH ×2 (09:16→16:56)
[2019-01-07] MEDS: DOCUSATE SODIUM 100 MG CAPSULE PO SCH (09:16)
[2019-01-07] MEDS: CHOLECALCIFEROL (VIT D3) 1,000 UNITS TABLET PO SCH (09:16)
[2019-01-07] MEDS: OMEPRAZOLE 20 MG CAPSULE PO SCH (09:16)
[2019-01-07] MEDS: LISINOPRIL 10 MG TABLET PO SCH (09:20)
[2019-01-07 16:00] VITALS: BP 128/74
[2019-01-07] MEDS: QUEtiapine FUMARATE 200 MG TABLET PO SCH (20:49)
[2019-01-07] MEDS: DiphenhydrAMINE HCL 25 MG CAPSULE PO SCH (20:49)
[2019-01-07] MEDS: LORazepam 2 MG TABLET PO PRN (20:50)
[2019-01-07] MEDS: RisperiDONE 2 MG TABLET PO SCH (20:50)
[2019-01-08 05:46] VITALS: BP 125/73
[2019-01-08 08:31] VITALS: BP 137/86
[2019-01-08] MEDS: THIAMINE HCL 100 MG TABLET PO SCH ×2 (08:44→16:11)
[2019-01-08] MEDS: MULTIVITAMINS WITH IRON TABLET PO SCH (08:44)
[2019-01-08] MEDS: LISINOPRIL 10 MG TABLET PO SCH (08:44)
[2019-01-08] MEDS: CHOLECALCIFEROL (VIT D3) 1,000 UNITS TABLET PO SCH (08:44)
[2019-01-08] MEDS: FOLIC ACID 1 MG TABLET PO SCH (08:45)
[2019-01-08] MEDS: OMEPRAZOLE 20 MG CAPSULE PO SCH (08:45)
[2019-01-08] MEDS: DOCUSATE SODIUM 100 MG CAPSULE PO SCH (08:45)
[2019-01-08] MEDS: LORazepam 2 MG TABLET PO PRN ×2 (08:45→16:11)
[2019-01-08] MEDS: OLANZapine 5 MG RAPDIS TABLET PO PRN (08:45)
[2019-01-08 16:18] VITALS: BP 131/91
[2019-01-08] MEDS: DiphenhydrAMINE HCL 25 MG CAPSULE PO SCH (20:52)
[2019-01-08] MEDS: RisperiDONE 2 MG TABLET PO SCH (20:52)
[2019-01-08] MEDS: QUEtiapine FUMARATE 200 MG TABLET PO SCH (20:53)
[2019-01-08] MEDS: CEPHALEXIN MONOHYDRATE 500 MG CAPSULE PO SCH (22:14)
[2019-01-09 06:14] VITALS: BP 144/84
[2019-01-09 08:07] VITALS: BP 138/82
[2019-01-09] MEDS: DOCUSATE SODIUM 100 MG CAPSULE PO SCH (08:16)
[2019-01-09] MEDS: THIAMINE HCL 100 MG TABLET PO SCH ×2 (08:16→16:16)
[2019-01-09] MEDS: CEPHALEXIN MONOHYDRATE 500 MG CAPSULE PO SCH ×2 (08:16→20:38)
[2019-01-09] MEDS: MULTIVITAMINS WITH IRON TABLET PO SCH (08:17)
[2019-01-09] MEDS: OMEPRAZOLE 20 MG CAPSULE PO SCH (08:17)
[2019-01-09] MEDS: CHOLECALCIFEROL (VIT D3) 1,000 UNITS TABLET PO SCH (08:17)
[2019-01-09] MEDS: LISINOPRIL 10 MG TABLET PO SCH (08:17)
[2019-01-09] MEDS: FOLIC ACID 1 MG TABLET PO SCH (08:17)
[2019-01-09] MEDS: LORazepam 2 MG TABLET PO PRN ×2 (08:18→16:16)
[2019-01-09 16:02] VITALS: BP 134/68
[2019-01-09] MEDS: OLANZapine 5 MG RAPDIS TABLET PO PRN (16:16)
[2019-01-09] MEDS: DiphenhydrAMINE HCL 25 MG CAPSULE PO SCH (20:38)
[2019-01-09] MEDS: QUEtiapine FUMARATE 200 MG TABLET PO SCH (20:38)
[2019-01-09] MEDS: RisperiDONE 2 MG TABLET PO SCH (20:38)
[2019-01-10 04:41] VITALS: BP 137/88
[2019-01-10 08:19] VITALS: BP 141/91
[2019-01-10] MEDS: CHOLECALCIFEROL (VIT D3) 1,000 UNITS TABLET PO SCH (08:28)
[2019-01-10] MEDS: THIAMINE HCL 100 MG TABLET PO SCH (08:28)
[2019-01-10] MEDS: DOCUSATE SODIUM 100 MG CAPSULE PO SCH (08:29)
[2019-01-10] MEDS: OMEPRAZOLE 20 MG CAPSULE PO SCH (08:29)
[2019-01-10] MEDS: CEPHALEXIN MONOHYDRATE 500 MG CAPSULE PO SCH ×2 (08:29→21:08)
[2019-01-10] MEDS: FOLIC ACID 1 MG TABLET PO SCH (08:29)
[2019-01-10] MEDS: LISINOPRIL 20 MG TABLET PO SCH (08:29)
[2019-01-10] MEDS: MULTIVITAMINS WITH IRON TABLET PO SCH (08:31)
[2019-01-10] MEDS: LORazepam 2 MG TABLET PO PRN ×2 (10:13→20:03)
[2019-01-10] MEDS ORDERED: DIPH25 PO (15:08)
[2019-01-10] MEDS ORDERED: QUET200T29 PO (15:08)
[2019-01-10 18:37] VITALS: BP 157/95
[2019-01-10 21:02] VITALS: BP 138/78
[2019-01-10] MEDS: RisperiDONE 2 MG TABLET PO SCH (21:08)
[2019-01-10] MEDS: QUEtiapine FUMARATE 200 MG TABLET PO SCH (21:08)
[2019-01-10] MEDS: DiphenhydrAMINE HCL 25 MG CAPSULE PO SCH (21:08)
[2019-01-11 04:45] VITALS: BP 125/81
[2019-01-11] MEDS: OMEPRAZOLE 20 MG CAPSULE PO SCH (08:14)
[2019-01-11] MEDS: MULTIVITAMINS WITH IRON TABLET PO SCH (08:14)
[2019-01-11] MEDS: LISINOPRIL 20 MG TABLET PO SCH (08:14)
[2019-01-11] MEDS: CEPHALEXIN MONOHYDRATE 500 MG CAPSULE PO SCH (08:14)
[2019-01-11] MEDS: CHOLECALCIFEROL (VIT D3) 1,000 UNITS TABLET PO SCH (08:14)
[2019-01-11] MEDS: DOCUSATE SODIUM 100 MG CAPSULE PO SCH (08:19)
[2019-01-11 08:30] VITALS: BP 136/90
[2019-01-11] MEDS ORDERED: PALIPERIDONE PALMITATE 156 MG/ML SYRINGE IM ONE (09:00)
[2019-01-11] MEDS ORDERED: DIPH50 PO (09:55)
== END 2019-01-11 16:33 | disposition home or self-care (01) | DRG 750 ==
LOC: EMS 13:35 → B3A 20:48
PROVIDERS: ADMIT Psychiatry & Neurology Psychiatry; ATTEND Psychiatry & Neurology Psychiatry
DX: F20.0 Paranoid schizophrenia (principal); D50.9 Iron deficiency anemia, unspecified; Z59.0 Homelessness; E55.9 Vitamin D deficiency, unspecified; E87.6 Hypokalemia; F17.200 Nicotine dependence, unspecified, uncomplicated; I10 Essential (primary) hypertension; K21.9 Gastro-esophageal reflux disease without esophagitis; K59.00 Constipation, unspecified; F41.9 Anxiety disorder, unspecified; G47.00 Insomnia, unspecified; Z91.14 Patient's other noncompliance with medication regimen; Z79.899 Other long term (current) drug therapy
CPT/HCPCS: 70450; 84132; 84295; 93005; 96372; J1200; J1630; J2060; J3230

== ENCOUNTER 2019-01-24 10:46 | Inpatient (IN) | payer MEDICAID, OTHER ==
[~2019-01-24] VITALS: Ht 188 cm; Wt 91.7 kg
[~2019-01-24 10:46] MED LIST changes: +DIPH25 PO; +DIPH50 PO; -FERR-89 PO; -OMEP20 PO; -OXCA300T29 PO; +QUET200T29 PO; -TERB15CR18 TP; -VITAD1000 PO
[2019-01-24] MEDS ORDERED: HALOPERIDOL 5 MG TABLET PO ONE (11:15)
[2019-01-24] MEDS ORDERED: LORazepam 2 MG TABLET PO ONE (11:15)
[2019-01-24 11:24] LABS: BASOPHILS % (AUTO) 0.9 % (0.0-2.0); EOSINOPHILS % (AUTO) 0.7 % (1.0-6.0); HEMATOCRIT 26.1 % (41-53); HEMOGLOBIN 8.4 g/dL (13.5-17.5); LYMPHOCYTES # (AUTO) 0.9 K/uL (1.0-4.8); LYMPHOCYTES % (AUTO) 14.6 % (22.0-44.0); MEAN CORPUSCULAR HEMOGLOBIN 27.9 pg (26.0-34.0); MEAN CORPUSCULAR VOLUME 87 fL (80-100); MONOCYTES # (AUTO) 0.5 K/uL (0.1-1.0); MONOCYTES % (AUTO) 8.2 % (2.0-9.0); NEUTROPHILS # (AUTO) 4.5 K/uL (1.8-7.7); NEUTROPHILS % (AUTO) 75.6 % (40.0-70.0); PLATELET COUNT (AUTO) 294 K/uL (150-450); RED CELL DISTRIBUTION WIDTH 16.6 % (11.5-14.5)
[2019-01-24 11:34] LABS: ANION GAP 8 mmol/L (8-16); CALCIUM, TOTAL 8.9 mg/dL (8.8-10.5); CARBON DIOXIDE 28 mmol/L (22-29); CHLORIDE 99 mmol/L (98-107); CREATININE 1.06 mg/dL (0.60-1.30); GLOMERULAR FILTR. RATE CALC > 60 mL/min (>60); GLUCOSE,RANDOM 108 mg/dL (70-110); POTASSIUM 3.1 mmol/L (3.5-5.1); SODIUM SERUM 135 mmol/L (136-145); UREA NITROGEN, BLOOD 7 mg/dL (7-18)
[2019-01-24 11:40] LABS: ALANINE AMINOTRANSFERASE 66 U/L (12-78); ALBUMIN 3.2 g/dL (3.4-5.0); ALKALINE PHOSPHATASE 134 U/L (46-116); ASPARTATE AMINOTRANSFERASE 32 U/L (15-37); BILIRUBIN,TOTAL 0.4 mg/dL (0.1-1.0); TOTAL PROTEIN, SERUM 7.1 g/dL (6.4-8.2)
[2019-01-24] MEDS ORDERED: HALOPERIDOL LACTATE 5 MG/ML VIAL IM ONE (11:45)
[2019-01-24] MEDS ORDERED: LORazepam 2 MG/ML VIAL IM ONE (11:45)
[2019-01-24] MEDS ORDERED: DiphenhydrAMINE HCL 50 MG/ML VIAL IM ONE (11:45)
[2019-01-24 12:22] LABS: AMPHET/METH SCREEN,URINE NEGATIVE (NEGATIVE); BARBITURATE SCREEN, URINE NEGATIVE (NEGATIVE); BENZODIAZEPINES SCREEN,URINE NEGATIVE (NEGATIVE); CANNABINOID SCREEN,URINE NEGATIVE (NEGATIVE); COCAINE SCREEN,URINE NEGATIVE (NEGATIVE); METHADONE SCREEN, URINE NEGATIVE (NEGATIVE); OPIATE SCREEN,URINE NEGATIVE (NEGATIVE); PHENCYCLIDINE SCREEN,URINE NEGATIVE (NEGATIVE)
[2019-01-24] MEDS ORDERED: IBUPROFEN 400 MG TABLET PO PRN ×2 (13:00→13:15)
[2019-01-24] MEDS ORDERED: ACETAMINOPHEN 325 MG TABLET PO PRN ×2 (13:00→13:15)
[2019-01-24] MEDS ORDERED: LISINOPRIL 10 MG TABLET PO ONE (13:00)
[2019-01-24] MEDS ORDERED: GuaiFENesin/D-METHORPHAN [SUGAR-FREE] 200-20MG/10 ML SYRUP UDCUP PO PRN (13:15)
[2019-01-24] MEDS ORDERED: POTASSIUM CHLORIDE 10% 40 MEQ/30 ML LIQUID UDCUP PO ONE (13:15)
[2019-01-24] MEDS ORDERED: PETROLATUM,WHITE 28 GM JELLY TP PRN (13:15)
[2019-01-24] MEDS ORDERED: DOCUSATE SODIUM 100 MG CAPSULE PO PRN (13:15)
[2019-01-24] MEDS ORDERED: MAG HYDROX/AL HYDROX/SIMETH ES 30 ML SUSPENSION UDCUP PO PRN (13:15)
[2019-01-24] MEDS ORDERED: ALBUTEROL SULFATE HFA 90 MCG/PUFF 8 GM INHALER IH PRN (13:15)
[2019-01-24] MEDS ORDERED: ONDANSETRON HCL 4 MG TABLET PO PRN (13:15)
[2019-01-24] MEDS ORDERED: MAGNESIUM HYDROXIDE SUSPENSION 30 ML UDCUP PO PRN (13:15)
[2019-01-24] MEDS ORDERED: LOPERAMIDE HCL 2 MG CAPSULE PO PRN (13:15)
[2019-01-24] MEDS ORDERED: CloNIDine HCL 0.1 MG TABLET PO PRN (13:15)
[2019-01-25 01:27] VITALS: BP 131/98
[2019-01-25 08:00] VITALS: BP 117/72
[2019-01-25 08:01] LABS: BASOPHILS % (AUTO) 0.7 % (0.0-2.0); EOSINOPHILS % (AUTO) 3.3 % (1.0-6.0); HEMATOCRIT 30.5 % (41-53); HEMOGLOBIN 9.8 g/dL (13.5-17.5); LYMPHOCYTES # (AUTO) 0.9 K/uL (1.0-4.8); LYMPHOCYTES % (AUTO) 17.3 % (22.0-44.0); MEAN CORPUSCULAR HEMOGLOBIN 28.4 pg (26.0-34.0); MEAN CORPUSCULAR HGB CONC 32.3 G/dL (31.0-37.0); MEAN CORPUSCULAR VOLUME 88 fL (80-100); MONOCYTES # (AUTO) 0.5 K/uL (0.1-1.0); MONOCYTES % (AUTO) 10.1 % (2.0-9.0); NEUTROPHILS # (AUTO) 3.7 K/uL (1.8-7.7); NEUTROPHILS % (AUTO) 68.6 % (40.0-70.0); PLATELET COUNT (AUTO) 322 K/uL (150-450); RED BLOOD CELL COUNT(AUTO) 3.46 MIL/uL (4.50-5.90); RED CELL DISTRIBUTION WIDTH 16.8 % (11.5-14.5)
[2019-01-25 08:19] LABS: HEMOGLOBIN A1C 5.8 % (4.5-6.2)
[2019-01-25] MEDS: LISINOPRIL 20 MG TABLET PO SCH (08:41)
[2019-01-25 08:44] LABS: ALANINE AMINOTRANSFERASE 62 U/L (12-78); ALBUMIN 3.4 g/dL (3.4-5.0); ALKALINE PHOSPHATASE 137 U/L (46-116); ANION GAP 10 mmol/L (8-16); ASPARTATE AMINOTRANSFERASE 39 U/L (15-37); BILIRUBIN,TOTAL 0.6 mg/dL (0.1-1.0); CALCIUM, TOTAL 9.1 mg/dL (8.8-10.5); CARBON DIOXIDE 28 mmol/L (22-29); CHLORIDE 104 mmol/L (98-107); CHOL/HDL RATIO 2.6 (4.2-7.3); CHOLESTEROL 143 mg/dL (131-200); CREATININE 0.92 mg/dL (0.60-1.30); GLOMERULAR FILTR. RATE CALC > 60 mL/min (>60); GLUCOSE,RANDOM 74 mg/dL (70-110); HDL CHOLESTEROL 56 mg/dL (40-60); LDL CHOL (CALC.) 81 mg/dL (0-130); POTASSIUM 3.7 mmol/L (3.5-5.1); SODIUM SERUM 142 mmol/L (136-145); THYROID STIMULATING HORMONE 2.95 uIU/mL (0.36-3.74); TOTAL PROTEIN, SERUM 7.1 g/dL (6.4-8.2); TRIGLYCERIDES 29 mg/dL (15-150); UREA NITROGEN, BLOOD 6 mg/dL (7-18)
[2019-01-25] MEDS ORDERED: LISINOPRIL 20 MG TABLET PO SCH (09:00)
[2019-01-25] MEDS: LORazepam 2 MG TABLET PO PRN ×2 (09:20→16:58)
[2019-01-25] MEDS: NICOTINE 14 MG/24 HOUR PATCH TD PRN (10:29)
[2019-01-25] MEDS ORDERED: OLANZapine 5 MG RAPDIS TABLET PO PRN (14:30)
[2019-01-25 16:36] VITALS: BP 134/84
[2019-01-25] MEDS: FERROUS SULFATE 325 MG EC TABLET PO SCH (16:58)
[2019-01-25] MEDS: OLANZapine 5 MG RAPDIS TABLET PO SCH (20:42)
[2019-01-26 05:02] VITALS: BP 133/85
[2019-01-26] MEDS: FERROUS SULFATE 325 MG EC TABLET PO SCH ×3 (06:23→16:02)
[2019-01-26 08:09] VITALS: BP 149/91
[2019-01-26] MEDS: LISINOPRIL 20 MG TABLET PO SCH (08:12)
[2019-01-26] MEDS: LORazepam 2 MG TABLET PO PRN (08:12)
[2019-01-26] MEDS: NICOTINE 14 MG/24 HOUR PATCH TD PRN (09:32)
[2019-01-26 16:00] VITALS: BP 118/85
[2019-01-26] MEDS: OLANZapine 5 MG RAPDIS TABLET PO SCH (20:50)
[2019-01-27 04:36] VITALS: BP 135/82
[2019-01-27] MEDS: FERROUS SULFATE 325 MG EC TABLET PO SCH ×3 (06:20→16:02)
[2019-01-27] MEDS: LISINOPRIL 20 MG TABLET PO SCH (08:27)
[2019-01-27] MEDS ORDERED: HALOPERIDOL LACTATE 5 MG/ML VIAL IM ONE (11:00)
[2019-01-27] MEDS ORDERED: DiphenhydrAMINE HCL 50 MG/ML VIAL IM ONE (11:00)
[2019-01-27] MEDS ORDERED: LORazepam 2 MG/ML VIAL IM ONE (11:00)
[2019-01-27] MEDS: LORazepam 2 MG TABLET PO PRN (16:02)
[2019-01-27] MEDS ORDERED: QUEtiapine FUMARATE 300 MG TABLET PO SCH (21:00)
[2019-01-28] MEDS: FERROUS SULFATE 325 MG EC TABLET PO SCH ×3 (06:09→16:41)
[2019-01-28 08:04] VITALS: BP 143/81
[2019-01-28] MEDS: LISINOPRIL 20 MG TABLET PO SCH (08:52)
[2019-01-28] MEDS ORDERED: QUEtiapine FUMARATE 100 MG TABLET PO PRN (17:45)
[2019-01-28] MEDS: QUEtiapine FUMARATE 200 MG TABLET PO SCH (20:21)
[2019-01-29 01:09] VITALS: BP 144/87
[2019-01-29] MEDS: FERROUS SULFATE 325 MG EC TABLET PO SCH ×5 (06:49→16:32)
[2019-01-29 08:03] VITALS: BP 148/83
[2019-01-29] MEDS: LISINOPRIL 20 MG TABLET PO SCH (08:33)
[2019-01-29] MEDS: LORazepam 2 MG TABLET PO PRN ×2 (08:34→16:32)
[2019-01-29] MEDS: HALOPERIDOL 5 MG TABLET PO PRN ×2 (08:34→16:32)
[2019-01-29 08:39] VITALS: BP 148/83
[2019-01-29 09:39] VITALS: BP 131/83
[2019-01-29 16:00] VITALS: BP 134/80
[2019-01-29] MEDS: NICOTINE 14 MG/24 HOUR PATCH TD PRN (16:32)
[2019-01-29] MEDS: QUEtiapine FUMARATE 200 MG TABLET PO SCH (20:13)
[2019-01-30 02:39] VITALS: BP 131/81
[2019-01-30] MEDS: FERROUS SULFATE 325 MG EC TABLET PO SCH ×3 (06:43→16:11)
[2019-01-30 08:03] VITALS: BP 131/71
[2019-01-30] MEDS: LISINOPRIL 20 MG TABLET PO SCH (08:16)
[2019-01-30] MEDS: LORazepam 2 MG TABLET PO PRN ×2 (09:32→16:11)
[2019-01-30] MEDS: HALOPERIDOL 5 MG TABLET PO PRN (09:32)
[2019-01-30 16:11] VITALS: BP 136/81
[2019-01-30] MEDS: QUEtiapine FUMARATE 200 MG TABLET PO SCH (20:21)
[2019-01-31] MEDS: FERROUS SULFATE 325 MG EC TABLET PO SCH ×3 (06:37→17:06)
[2019-01-31 08:11] VITALS: BP 148/90
[2019-01-31] MEDS: LISINOPRIL 20 MG TABLET PO SCH (08:40)
[2019-01-31] MEDS: LORazepam 2 MG TABLET PO PRN ×2 (09:22→17:06)
[2019-01-31 16:00] VITALS: BP 136/77
[2019-01-31] MEDS: QUEtiapine FUMARATE 200 MG TABLET PO SCH (20:32)
[2019-02-01 02:06] VITALS: BP 132/74
[2019-02-01] MEDS: FERROUS SULFATE 325 MG EC TABLET PO SCH ×3 (06:22→16:57)
[2019-02-01 08:00] VITALS: BP 114/69
[2019-02-01] MEDS: LISINOPRIL 20 MG TABLET PO SCH (08:46)
[2019-02-01] MEDS: LORazepam 2 MG TABLET PO PRN (16:57)
[2019-02-01] MEDS: QUEtiapine FUMARATE 200 MG TABLET PO SCH (20:25)
[2019-02-02] MEDS: FERROUS SULFATE 325 MG EC TABLET PO SCH ×3 (06:16→16:43)
[2019-02-02] MEDS: LISINOPRIL 20 MG TABLET PO SCH (08:22)
[2019-02-02 08:36] VITALS: BP 111/74
[2019-02-02 16:04] VITALS: BP 119/72
[2019-02-02] MEDS: QUEtiapine FUMARATE 200 MG TABLET PO SCH (20:09)
[2019-02-03] MEDS: FERROUS SULFATE 325 MG EC TABLET PO SCH ×3 (06:07→16:57)
[2019-02-03] MEDS: LISINOPRIL 20 MG TABLET PO SCH (08:14)
[2019-02-03 08:17] VITALS: BP 124/73
[2019-02-03] MEDS: NICOTINE 14 MG/24 HOUR PATCH TD PRN (12:53)
[2019-02-03 16:05] VITALS: BP 114/84
[2019-02-03] MEDS: QUEtiapine FUMARATE 200 MG TABLET PO SCH (21:00)
[2019-02-04 06:13] VITALS: BP 112/78
[2019-02-04] MEDS: FERROUS SULFATE 325 MG EC TABLET PO SCH ×3 (06:28→16:51)
[2019-02-04 08:08] VITALS: BP 110/60
[2019-02-04] MEDS: LISINOPRIL 20 MG TABLET PO SCH (08:41)
[2019-02-04 16:08] VITALS: BP 140/89
[2019-02-04] MEDS: LORazepam 2 MG TABLET PO PRN (16:51)
[2019-02-04] MEDS: ZOLPIDEM TARTRATE 10 MG TABLET PO PRN (20:33)
[2019-02-04] MEDS: QUEtiapine FUMARATE 200 MG TABLET PO SCH (20:33)
[2019-02-05] MEDS: FERROUS SULFATE 325 MG EC TABLET PO SCH ×3 (06:31→16:41)
[2019-02-05 07:17] VITALS: BP 135/72
[2019-02-05] MEDS: LORazepam 2 MG TABLET PO PRN ×3 (08:00→16:41)
[2019-02-05] MEDS: LISINOPRIL 20 MG TABLET PO SCH (08:00)
[2019-02-05 08:21] VITALS: BP 133/90
[2019-02-05 16:00] VITALS: BP 140/80
[2019-02-05] MEDS: QUEtiapine FUMARATE 200 MG TABLET PO SCH (20:22)
[2019-02-05] MEDS: ZOLPIDEM TARTRATE 10 MG TABLET PO PRN (20:23)
[2019-02-06 02:42] VITALS: BP 133/88
[2019-02-06] MEDS: FERROUS SULFATE 325 MG EC TABLET PO SCH ×3 (06:03→16:36)
[2019-02-06] MEDS: LORazepam 2 MG TABLET PO PRN ×3 (08:00→16:36)
[2019-02-06] MEDS: LISINOPRIL 20 MG TABLET PO SCH (08:00)
[2019-02-06 08:03] VITALS: BP 140/68
[2019-02-06] MEDS ORDERED: ARIPiprazole 5 MG TABLET PO SCH (09:00)
[2019-02-06 16:51] VITALS: BP 130/84
[2019-02-06] MEDS: QUEtiapine FUMARATE 200 MG TABLET PO SCH (20:21)
[2019-02-06] MEDS: ZOLPIDEM TARTRATE 10 MG TABLET PO PRN (20:23)
[2019-02-07 05:12] VITALS: BP 122/78
[2019-02-07] MEDS: FERROUS SULFATE 325 MG EC TABLET PO SCH ×3 (06:31→16:52)
[2019-02-07] MEDS: LORazepam 2 MG TABLET PO PRN ×3 (08:04→16:52)
[2019-02-07] MEDS: LISINOPRIL 20 MG TABLET PO SCH (08:05)
[2019-02-07 08:18] VITALS: BP 124/87
[2019-02-07] MEDS ORDERED: ARIPiprazole 10 MG TABLET PO SCH (09:00)
[2019-02-07] MEDS: ARIPiprazole 10 MG TABLET PO SCH (16:52)
[2019-02-07 17:12] VITALS: BP 151/92
[2019-02-07 20:40] VITALS: BP 130/78
[2019-02-07] MEDS ORDERED: QUEtiapine FUMARATE 200 MG TABLET PO SCH (21:00)
[2019-02-08 05:08] VITALS: BP 138/76
[2019-02-08] MEDS: FERROUS SULFATE 325 MG EC TABLET PO SCH ×2 (06:26→12:21)
[2019-02-08 08:53] VITALS: BP 138/78
[2019-02-08] MEDS ORDERED: ARIPiprazole LAUROXIL ER SUSPENSION 662 MG/2.4 ML SYRINGE IM SCH (09:00)
[2019-02-08] MEDS: LISINOPRIL 20 MG TABLET PO SCH (09:11)
[2019-02-08] MEDS: ARIPiprazole 10 MG TABLET PO SCH (09:11)
[2019-02-08] MEDS ORDERED: QUET200T29 PO (11:34)
[2019-02-08] MEDS ORDERED: FERR-89 PO (12:19)
[2019-02-08] MEDS ORDERED: QUET300T2 PO (12:19)
== END 2019-02-08 13:00 | disposition home or self-care (01) | DRG 750 ==
LOC: EMS 10:48 → B3A 22:30
PROVIDERS: ADMIT Psychiatry & Neurology Psychiatry; ATTEND Psychiatry & Neurology Psychiatry
DX: F20.0 Paranoid schizophrenia (principal); Z78.1 Physical restraint status; F39 Unspecified mood [affective] disorder; D64.9 Anemia, unspecified; E55.9 Vitamin D deficiency, unspecified; E78.5 Hyperlipidemia, unspecified; E87.6 Hypokalemia; F60.0 Paranoid personality disorder; I10 Essential (primary) hypertension; J44.9 Chronic obstructive pulmonary disease, unspecified; Z91.19 Patient's noncompliance with other medical treatment and regimen; Z87.891 Personal history of nicotine dependence; K59.00 Constipation, unspecified; Z79.899 Other long term (current) drug therapy
CPT/HCPCS: 83036; 84132; 84443; 87081; 99291; G0480; J1200; J1630; J2060; Q0162

== ENCOUNTER 2019-09-16 21:32 | Inpatient (IN) | payer OTHER ==
[~2019-09-16] VITALS: Ht 190.5 cm; Wt 74.6 kg
[~2019-09-16 21:32] MED LIST changes: -DIPH25 PO; -DIPH50 PO; +FERR-89 PO; -QUET200T29 PO
[2019-09-16] MEDS ORDERED: QUET100T PO (21:37)
[2019-09-16 22:41] LABS: BASOPHILS % (AUTO) 0.6 % (0.0-2.0); EOSINOPHILS % (AUTO) 1.2 % (1.0-6.0); HEMATOCRIT 27.8 % (41-53); HEMOGLOBIN 9.3 g/dL (13.5-17.5); LYMPHOCYTES # (AUTO) 1.3 K/uL (1.0-4.8); LYMPHOCYTES % (AUTO) 25.6 % (22.0-44.0); MEAN CORPUSCULAR HEMOGLOBIN 25.6 pg (26.0-34.0); MEAN CORPUSCULAR HGB CONC 33.6 G/dL (31.0-37.0); MEAN CORPUSCULAR VOLUME 76 fL (80-100); MONOCYTES # (AUTO) 0.5 K/uL (0.1-1.0); MONOCYTES % (AUTO) 10.1 % (2.0-9.0); NEUTROPHILS # (AUTO) 3.3 K/uL (1.8-7.7); NEUTROPHILS % (AUTO) 62.5 % (40.0-70.0); PLATELET COUNT (AUTO) 376 K/uL (150-450); RED BLOOD CELL COUNT(AUTO) 3.64 MIL/uL (4.50-5.90); RED CELL DISTRIBUTION WIDTH 19.6 % (11.5-14.5)
[2019-09-16 22:59] LABS: ALANINE AMINOTRANSFERASE 31 U/L (12-78); ALBUMIN 3.3 g/dL (3.4-5.0); ALKALINE PHOSPHATASE 75 U/L (46-116); ANION GAP 3 mmol/L (8-16); ASPARTATE AMINOTRANSFERASE 39 U/L (15-37); BILIRUBIN,TOTAL 0.4 mg/dL (0.1-1.0); CALCIUM, TOTAL 8.9 mg/dL (8.8-10.5); CHLORIDE 82 mmol/L (98-107); CREATININE 1.64 mg/dL (0.60-1.30); GLOMERULAR FILTR. RATE CALC 53 mL/min (>60); GLUCOSE,RANDOM 108 mg/dL (70-110); SODIUM SERUM 129 mmol/L (136-145); TOTAL PROTEIN, SERUM 6.9 g/dL (6.4-8.2); UREA NITROGEN, BLOOD 15 mg/dL (7-18)
[2019-09-16 23:02] LABS: POTASSIUM 1.9 mmol/L (3.5-5.1)
[2019-09-16 23:03] LABS: CARBON DIOXIDE 44 mmol/L (22-29)
[2019-09-16] MEDS: POTASSIUM CHLORIDE 10% 40 MEQ/30 ML LIQUID UDCUP PO ONE (23:33)
[2019-09-16] MEDS: POTASSIUM CHL 10 MEQ/WATER 50 ML IV SCH (23:33)
[2019-09-17] MEDS ORDERED: LORazepam 2 MG/ML VIAL IM ONE
[2019-09-17 01:06] LABS: APPEARANCE,URINE CLEAR (CLEAR); BILIRUBIN,URINE NEGATIVE (NEGATIVE); GLUCOSE, URINE (UA) NEGATIVE (NEGATIVE); KETONES,URINE NEGATIVE (NEGATIVE); LEUKOCYTE ESTERASE ,URINE NEGATIVE (NEGATIVE); NITRATE,URINE NEGATIVE (NEGATIVE); OCCULT BLOOD,URINE NEGATIVE (NEGATIVE); PH,URINE 7.5 (5.0-8.0); PROTEIN,URINE NEGATIVE (NEGATIVE)
[2019-09-17] MEDS: POTASSIUM CHLORIDE 10% 40 MEQ/30 ML LIQUID UDCUP PO ONE (01:10)
[2019-09-17 01:11] LABS: AMPHET/METH SCREEN,URINE NEGATIVE (NEGATIVE); BARBITURATE SCREEN, URINE NEGATIVE (NEGATIVE); BENZODIAZEPINES SCREEN,URINE NEGATIVE (NEGATIVE); CANNABINOID SCREEN,URINE NEGATIVE (NEGATIVE); COCAINE SCREEN,URINE NEGATIVE (NEGATIVE); METHADONE SCREEN, URINE NEGATIVE (NEGATIVE); OPIATE SCREEN,URINE NEGATIVE (NEGATIVE); PHENCYCLIDINE SCREEN,URINE NEGATIVE (NEGATIVE)
[2019-09-17] MEDS: POTASSIUM CHL 10 MEQ/WATER 50 ML IV SCH ×3 (02:46→12:36)
[2019-09-17] MEDS ORDERED: LORazepam 2 MG/ML VIAL IVP ONE ×2 (03:15)
[2019-09-17 03:37] LABS: POTASSIUM 2.4 mmol/L (3.5-5.1)
[2019-09-17] MEDS ORDERED: 0.9% SODIUM CHLORIDE 10 ML SYRINGE IVP PRN ×2 (03:45→05:30)
[2019-09-17] MEDS ORDERED: ACETAMINOPHEN 325 MG TABLET PO PRN ×2 (03:45→05:30)
[2019-09-17] MEDS ORDERED: MAGNESIUM SULFATE 4 GM/WATER 100 ML IV PRN (05:30)
[2019-09-17] MEDS ORDERED: MAGNESIUM SULFATE 2 GM/WATER 50 ML IV PRN (05:30)
[2019-09-17] MEDS ORDERED: SODIUM CHLORIDE 0.9% 1,000 ML IV SCH (05:30)
[2019-09-17] MEDS ORDERED: MAGNESIUM OXIDE 400 MG TABLET PO PRN (05:30)
[2019-09-17] MEDS ORDERED: ZOLPIDEM TARTRATE 5 MG TABLET PO PRN (05:30)
[2019-09-17] MEDS ORDERED: ONDANSETRON HCL 4 MG/2 ML VIAL IVP PRN (05:30)
[2019-09-17 07:07] LABS: % IRON SATURATION 5.8 % (30-44); IRON, SERUM 20 mcg/dL (50-175); TOTAL IRON BINDING CAPACITY 339 mcg/dL (250-450)
[2019-09-17 07:08] LABS: ALBUMIN 3.2 g/dL (3.4-5.0)
[2019-09-17 08:50] VITALS: BP 122/69
[2019-09-17] MEDS ORDERED: QUEtiapine FUMARATE 100 MG TABLET PO SCH (09:00)
[2019-09-17] MEDS ORDERED: LISINOPRIL 20 MG TABLET PO SCH (09:00)
[2019-09-17] MEDS: FERROUS SULFATE 325 MG EC TABLET PO SCH ×3 (09:54→18:00)
[2019-09-17] MEDS: PANTOPRAZOLE SODIUM 40 MG DR TABLET PO SCH (09:54)
[2019-09-17] MEDS: POTASSIUM CHLORIDE 20 MEQ ER TABLET PO PRN (09:55)
[2019-09-17 13:12] VITALS: BP 95/52
[2019-09-17] MEDS ORDERED: OLANZapine 5 MG RAPDIS TABLET PO PRN (18:15)
[2019-09-17] MEDS ORDERED: QUEtiapine FUMARATE 300 MG TABLET PO SCH (21:00)
[2019-09-17] MEDS: OLANZapine 5 MG RAPDIS TABLET PO SCH (21:00)
[2019-09-17] MEDS: POTASSIUM CHLORIDE 20 MEQ in SODIUM CHLORIDE 0.9% 1,000 ML IV SCH (22:30)
[2019-09-17 23:44] LABS: % IRON SATURATION 76.5 % (30-44); IRON, SERUM 251 mcg/dL (50-175); TOTAL IRON BINDING CAPACITY 328 mcg/dL (250-450)
[2019-09-17 23:51] VITALS: BP 120/73
[2019-09-18 00:03] LABS: SODIUM SERUM 133 mmol/L (136-145)
[2019-09-18 00:04] LABS: ANION GAP -3 mmol/L (8-16); CARBON DIOXIDE 49 mmol/L (22-29); CHLORIDE 87 mmol/L (98-107); GLUCOSE,RANDOM 99 mg/dL (70-110); POTASSIUM 2.5 mmol/L (3.5-5.1); UREA NITROGEN, BLOOD 19 mg/dL (7-18)
[2019-09-18 00:05] LABS: CALCIUM, TOTAL 9.1 mg/dL (8.8-10.5); CREATININE 1.34 mg/dL (0.60-1.30); FERRITIN 6 ng/mL (26-388); GLOMERULAR FILTR. RATE CALC > 60 mL/min (>60); PHOSPHORUS 4.3 mg/dL (2.5-4.9)
[2019-09-18] MEDS: POTASSIUM CHL 10 MEQ/WATER 50 ML IV PRN ×4 (00:22→03:41)
[2019-09-18 07:50] VITALS: BP 108/77
[2019-09-18] MEDS: PANTOPRAZOLE SODIUM 40 MG DR TABLET PO SCH (10:29)
[2019-09-18] MEDS: FERROUS SULFATE 325 MG EC TABLET PO SCH ×3 (10:29→17:41)
[2019-09-18 10:31] VITALS: BP 109/67
[2019-09-18 11:03] LABS: BASOPHILS % (AUTO) 0.9 % (0.0-2.0); EOSINOPHILS % (AUTO) 1.7 % (1.0-6.0); HEMATOCRIT 31.9 % (41-53); HEMOGLOBIN 10.3 g/dL (13.5-17.5); LYMPHOCYTES # (AUTO) 2.4 K/uL (1.0-4.8); LYMPHOCYTES % (AUTO) 41.7 % (22.0-44.0); MEAN CORPUSCULAR HGB CONC 32.3 G/dL (31.0-37.0); MEAN CORPUSCULAR VOLUME 78 fL (80-100); MONOCYTES # (AUTO) 0.7 K/uL (0.1-1.0); MONOCYTES % (AUTO) 11.5 % (2.0-9.0); NEUTROPHILS # (AUTO) 2.5 K/uL (1.8-7.7); NEUTROPHILS % (AUTO) 44.2 % (40.0-70.0); PLATELET COUNT (AUTO) 407 K/uL (150-450); RED BLOOD CELL COUNT(AUTO) 4.11 MIL/uL (4.50-5.90); RED CELL DISTRIBUTION WIDTH 19.8 % (11.5-14.5)
[2019-09-18 11:39] LABS: ANION GAP 0 mmol/L (8-16); CHLORIDE 92 mmol/L (98-107); CREATININE 1.23 mg/dL (0.60-1.30); GLOMERULAR FILTR. RATE CALC > 60 mL/min (>60); GLUCOSE,RANDOM 85 mg/dL (70-110); PHOSPHORUS 3.3 mg/dL (2.5-4.9); SODIUM SERUM 135 mmol/L (136-145); UREA NITROGEN, BLOOD 16 mg/dL (7-18)
[2019-09-18 11:40] LABS: GLUCOMETER DEV NAME(LOC) 5S.2A; GLUCOSE,POINT OF CARE 90 MG/DL (70-110)
[2019-09-18 11:52] LABS: CARBON DIOXIDE 43 mmol/L (22-29); POTASSIUM 2.9 mmol/L (3.5-5.1)
[2019-09-18] MEDS ORDERED: POTASSIUM CHLORIDE 20 MEQ ER TABLET PO ONE ×2 (12:15→12:45)
[2019-09-18 15:28] VITALS: BP 112/72
[2019-09-18 16:49] LABS: ANION GAP 2 mmol/L (8-16); CALCIUM, TOTAL 8.5 mg/dL (8.8-10.5); CARBON DIOXIDE 38 mmol/L (22-29); CHLORIDE 93 mmol/L (98-107); CREATININE 1.26 mg/dL (0.60-1.30); GLOMERULAR FILTR. RATE CALC > 60 mL/min (>60); GLUCOSE,RANDOM 122 mg/dL (70-110); POTASSIUM 3.3 mmol/L (3.5-5.1); SODIUM SERUM 133 mmol/L (136-145); UREA NITROGEN, BLOOD 17 mg/dL (7-18)
[2019-09-18] MEDS: POTASSIUM CHLORIDE 20 MEQ in SODIUM CHLORIDE 0.9% 1,000 ML IV SCH ×2 (16:54→22:01)
[2019-09-18] MEDS: POTASSIUM CHLORIDE 20 MEQ ER TABLET PO PRN ×2 (16:54→22:50)
[2019-09-18 19:11] VITALS: BP 141/83
[2019-09-18] MEDS: OLANZapine 5 MG RAPDIS TABLET PO SCH (22:31)
[2019-09-18 23:00] VITALS: BP 135/79
[2019-09-19 04:38] VITALS: BP 124/85
[2019-09-19 04:56] LABS: POTASSIUM 3.6 mmol/L (3.5-5.1)
[2019-09-19 06:11] LABS: ANION GAP 8 mmol/L (8-16); CALCIUM, TOTAL 8.1 mg/dL (8.8-10.5); CARBON DIOXIDE 34 mmol/L (22-29); CHLORIDE 94 mmol/L (98-107); CREATININE 1.23 mg/dL (0.60-1.30); GLOMERULAR FILTR. RATE CALC > 60 mL/min (>60); GLUCOSE,RANDOM 89 mg/dL (70-110); SODIUM SERUM 136 mmol/L (136-145); UREA NITROGEN, BLOOD 11 mg/dL (7-18)
[2019-09-19] MEDS: FERROUS SULFATE 325 MG EC TABLET PO SCH ×3 (08:00→18:00)
[2019-09-19 09:00] VITALS: BP 113/71
[2019-09-19] MEDS: PANTOPRAZOLE SODIUM 40 MG DR TABLET PO SCH (09:00)
[2019-09-19 11:15] VITALS: BP 110/73
[2019-09-19] MEDS: POTASSIUM CHLORIDE 20 MEQ in SODIUM CHLORIDE 0.9% 1,000 ML IV SCH (12:27)
[2019-09-19 16:30] VITALS: BP 117/72
[2019-09-19] MEDS: OLANZapine 5 MG RAPDIS TABLET PO SCH (21:00)
[2019-09-19 21:30] VITALS: BP 112/69
[2019-09-20] MEDS: POTASSIUM CHLORIDE 20 MEQ in SODIUM CHLORIDE 0.9% 1,000 ML IV SCH (02:53)
[2019-09-20 07:46] LABS: ANION GAP 2 mmol/L (8-16); CALCIUM, TOTAL 8.3 mg/dL (8.8-10.5); CARBON DIOXIDE 34 mmol/L (22-29); CHLORIDE 102 mmol/L (98-107); GLOMERULAR FILTR. RATE CALC > 60 mL/min (>60); GLUCOSE,RANDOM 89 mg/dL (70-110); POTASSIUM 3.9 mmol/L (3.5-5.1); SODIUM SERUM 138 mmol/L (136-145); UREA NITROGEN, BLOOD 12 mg/dL (7-18)
[2019-09-20 07:57] VITALS: BP 143/89
[2019-09-20] MEDS: PANTOPRAZOLE SODIUM 40 MG DR TABLET PO SCH (07:57)
[2019-09-20] MEDS: FERROUS SULFATE 325 MG EC TABLET PO SCH ×2 (07:57→12:00)
[2019-09-20 11:02] VITALS: BP 136/92
[2019-09-20] MEDS ORDERED: OLAN5TAB40 PO (13:18)
== END 2019-09-20 14:15 | disposition still patient (30) | DRG 469 ==
LOC: EMS 21:33 → 5S 09-17 03:55
PROVIDERS: ADMIT Internal Medicine; ATTEND Internal Medicine
DX: N17.9 Acute kidney failure, unspecified (principal); E87.3 Alkalosis; I95.9 Hypotension, unspecified; E87.8 Other disorders of electrolyte and fluid balance, not elsewhere classified; I12.0 Hypertensive chronic kidney disease with stage 5 chronic kidney disease or end stage renal disease; E87.1 Hypo-osmolality and hyponatremia; E44.1 Mild protein-calorie malnutrition; F20.0 Paranoid schizophrenia; E87.6 Hypokalemia; E86.0 Dehydration; D64.9 Anemia, unspecified; E78.5 Hyperlipidemia, unspecified; F60.0 Paranoid personality disorder; J45.909 Unspecified asthma, uncomplicated; N18.6 End stage renal disease; F17.210 Nicotine dependence, cigarettes, uncomplicated; Z91.14 Patient's other noncompliance with medication regimen; Z79.899 Other long term (current) drug therapy; Z91.19 Patient's noncompliance with other medical treatment and regimen; Z91.81 History of falling; Z68.20 Body mass index [BMI] 20.0-20.9, adult
CPT/HCPCS: 70450; 74176; 82270; 82728; 83540; 83550; 83735; 84100; 84132; 93005; 99291; 99292; G0480; J2060; J3480; J7030

== ENCOUNTER 2019-09-28 13:33 | Emergency (ER) | payer OTHER ==
[~2019-09-28] VITALS: Ht 190.5 cm; Wt 74.6 kg
[~2019-09-28 13:33] MED LIST changes: +OLAN5TAB40 PO; -QUET300T2 PO
[2019-09-28] MEDS ORDERED: SODIUM CHLORIDE 0.9% 1,000 ML IV ONE (14:22)
[2019-09-28] MEDS ORDERED: METOCLOPRAMIDE HCL 5 MG/ML 2 ML VIAL IVP ONE (14:30)
[2019-09-28] MEDS ORDERED: DiphenhydrAMINE HCL 50 MG/ML VIAL IVP ONE (14:30)
[2019-09-28 15:02] VITALS: BP 151/98
== END 2019-09-28 17:06 | disposition home or self-care (01) ==
LOC: EMS 13:34
DX: R51 Headache (principal); R42 Dizziness and giddiness; F20.9 Schizophrenia, unspecified; F17.210 Nicotine dependence, cigarettes, uncomplicated; N18.6 End stage renal disease; Z99.2 Dependence on renal dialysis; Z79.899 Other long term (current) drug therapy
CPT/HCPCS: 96361; 96374; 96375; 99284; 99406; J1200; J2765; J7030

== ENCOUNTER 2020-02-27 19:13 | Inpatient (IN) | payer MEDICAID ==
[~2020-02-27] VITALS: Ht 185.4 cm; Wt 77.1 kg
[2020-02-27] MEDS ORDERED: LORazepam 2 MG TABLET PO PRN (21:15)
[2020-02-27] MEDS ORDERED: PALIPERIDONE 1.5 MG ER TABLET PO PRN (21:15)
[2020-02-27] MEDS ORDERED: MAGNESIUM HYDROXIDE SUSPENSION 30 ML UDCUP PO PRN (21:15)
[2020-02-27] MEDS ORDERED: LOPERAMIDE HCL 2 MG CAPSULE PO PRN (21:15)
[2020-02-27] MEDS ORDERED: MAG HYDROX/AL HYDROX/SIMETH ES 30 ML SUSPENSION UDCUP PO PRN (21:15)
[2020-02-27] MEDS ORDERED: ZOLPIDEM TARTRATE 10 MG TABLET PO PRN (21:15)
[2020-02-27] MEDS ORDERED: GuaiFENesin/D-METHORPHAN [SUGAR-FREE] 200-20MG/10 ML SYRUP UDCUP PO PRN (21:15)
[2020-02-27] MEDS ORDERED: HydrOXYzine PAMOATE 50 MG CAPSULE PO PRN (21:15)
[2020-02-28] MEDS ORDERED: HALOPERIDOL 5 MG TABLET PO PRN (01:00)
[2020-02-28 02:33] VITALS: BP 140/86
[2020-02-28] MEDS ORDERED: PNEUMOCOCCAL VACCINE POLYVALENT 0.5 ML VIAL [PPSV23] IM ONE (05:30)
[2020-02-28] MEDS: FOLIC ACID 1 MG TABLET PO SCH (08:22)
[2020-02-28] MEDS: THIAMINE 100 MG TABLET PO SCH ×2 (08:22→16:52)
[2020-02-28] MEDS: MULTIVITAMINS WITH MINERALS, THERAPEUTIC TABLET PO SCH (08:22)
[2020-02-28] MEDS: LORazepam 2 MG TABLET PO PRN ×2 (08:23→13:28)
[2020-02-28 08:53] VITALS: BP 138/88
[2020-02-28] MEDS ORDERED: PALIPERIDONE PALMITATE 234 MG/1.5 ML SYRINGE IM ONE (09:00)
[2020-02-28 16:15] VITALS: BP 139/65
[2020-02-28 16:16] VITALS: BP 132/68
[2020-02-28] MEDS: PALIPERIDONE 3 MG ER TABLET PO SCH (20:54)
[2020-02-29 05:02] VITALS: BP 130/65
[2020-02-29 08:26] LABS: EOSINOPHILS % (AUTO) 1.4 % (1.0-6.0); HEMATOCRIT 37.6 % (41-53); HEMOGLOBIN 12.4 g/dL (13.5-17.5); LYMPHOCYTES # (AUTO) 1.5 K/uL (1.0-4.8); LYMPHOCYTES % (AUTO) 26.7 % (22.0-44.0); MEAN CORPUSCULAR HEMOGLOBIN 29.2 pg (26.0-34.0); MEAN CORPUSCULAR HGB CONC 32.9 G/dL (31.0-37.0); MEAN CORPUSCULAR VOLUME 89 fL (80-100); MONOCYTES # (AUTO) 0.4 K/uL (0.1-1.0); MONOCYTES % (AUTO) 7.8 % (2.0-9.0); NEUTROPHILS # (AUTO) 3.4 K/uL (1.8-7.7); NEUTROPHILS % (AUTO) 62.1 % (40.0-70.0); PLATELET COUNT (AUTO) 304 K/uL (150-450); RED BLOOD CELL COUNT(AUTO) 4.23 MIL/uL (4.50-5.90); RED CELL DISTRIBUTION WIDTH 16.4 % (11.5-14.5)
[2020-02-29] MEDS: THIAMINE 100 MG TABLET PO SCH ×2 (08:39→16:16)
[2020-02-29] MEDS: FOLIC ACID 1 MG TABLET PO SCH (08:40)
[2020-02-29] MEDS: LORazepam 2 MG TABLET PO PRN (08:40)
[2020-02-29] MEDS: MULTIVITAMINS WITH MINERALS, THERAPEUTIC TABLET PO SCH (08:40)
[2020-02-29 08:42] VITALS: BP 147/96
[2020-02-29 16:30] VITALS: BP 139/93
[2020-02-29] MEDS: PALIPERIDONE 3 MG ER TABLET PO SCH (20:48)
[2020-03-01 04:01] VITALS: BP 131/90
[2020-03-01 08:22] VITALS: BP 137/95
[2020-03-01] MEDS: LORazepam 2 MG TABLET PO PRN ×2 (09:21→16:35)
[2020-03-01] MEDS: THIAMINE 100 MG TABLET PO SCH ×2 (09:21→16:35)
[2020-03-01] MEDS: FOLIC ACID 1 MG TABLET PO SCH (09:21)
[2020-03-01] MEDS: MULTIVITAMINS WITH MINERALS, THERAPEUTIC TABLET PO SCH (09:21)
[2020-03-01 09:55] LABS: APPEARANCE,URINE CLEAR (CLEAR); BILIRUBIN,URINE NEGATIVE (NEGATIVE); GLUCOSE, URINE (UA) 250 mg/dL (NEGATIVE); KETONES,URINE NEGATIVE (NEGATIVE); LEUKOCYTE ESTERASE ,URINE NEGATIVE (NEGATIVE); NITRATE,URINE NEGATIVE (NEGATIVE); OCCULT BLOOD,URINE NEGATIVE (NEGATIVE); PROTEIN,URINE NEGATIVE (NEGATIVE); UROBILINOGEN,URINE 0.2 mg/dL (<=1.0)
[2020-03-01 10:02] LABS: BARBITURATE SCREEN, URINE NEGATIVE (NEGATIVE); BENZODIAZEPINES SCREEN,URINE NEGATIVE (NEGATIVE); CANNABINOID SCREEN,URINE NEGATIVE (NEGATIVE); COCAINE SCREEN,URINE NEGATIVE (NEGATIVE); METHADONE SCREEN, URINE NEGATIVE (NEGATIVE); OPIATE SCREEN,URINE NEGATIVE (NEGATIVE)
[2020-03-01 10:15] LABS: AMPHET/METH SCREEN,URINE NEGATIVE (NEGATIVE); PHENCYCLIDINE SCREEN,URINE NEGATIVE (NEGATIVE)
[2020-03-01 10:20] LABS: BACTERIA,URINE None Seen /HPF (None Seen); RBC,URINE None Seen /HPF (0-2); WBC,URINE 0-2 /HPF (0-5)
[2020-03-01 12:57] VITALS: BP 139/87
[2020-03-01] MEDS: ACETAMINOPHEN 325 MG TABLET PO PRN (12:57)
[2020-03-01 16:23] VITALS: BP 137/93
[2020-03-01] MEDS ORDERED: QUEtiapine FUMARATE 200 MG ER TABLET PO SCH (19:00)
[2020-03-01] MEDS: PALIPERIDONE 3 MG ER TABLET PO SCH (20:02)
[2020-03-02 08:11] VITALS: BP 137/88
[2020-03-02] MEDS: MULTIVITAMINS WITH MINERALS, THERAPEUTIC TABLET PO SCH (09:10)
[2020-03-02] MEDS: FOLIC ACID 1 MG TABLET PO SCH (09:10)
[2020-03-02] MEDS: ACETAMINOPHEN 325 MG TABLET PO PRN (09:10)
[2020-03-02] MEDS: THIAMINE 100 MG TABLET PO SCH ×2 (09:10→16:32)
[2020-03-02 16:08] VITALS: BP 136/89
[2020-03-02] MEDS: QUEtiapine FUMARATE 200 MG ER TABLET PO SCH (19:08)
[2020-03-02] MEDS: PALIPERIDONE 3 MG ER TABLET PO SCH (20:41)
[2020-03-03 01:48] VITALS: BP 132/90
[2020-03-03 02:41] VITALS: BP 150/100
[2020-03-03] MEDS: ZOLPIDEM TARTRATE 10 MG TABLET PO PRN (02:49)
[2020-03-03] MEDS: ACETAMINOPHEN 325 MG TABLET PO PRN (02:49)
[2020-03-03 08:03] VITALS: BP 139/97
[2020-03-03 08:36] LABS: LITHIUM < 0.20 mmol/L (0.60-1.20)
[2020-03-03] MEDS: MULTIVITAMINS WITH MINERALS, THERAPEUTIC TABLET PO SCH (08:43)
[2020-03-03] MEDS: THIAMINE 100 MG TABLET PO SCH ×2 (08:43→16:41)
[2020-03-03] MEDS: FOLIC ACID 1 MG TABLET PO SCH (08:43)
[2020-03-03] MEDS ORDERED: PALIPERIDONE PALMITATE 156 MG/ML SYRINGE IM ONE (09:00)
[2020-03-03 09:07] LABS: ALANINE AMINOTRANSFERASE 24 U/L (12-78); ALBUMIN 3.4 g/dL (3.4-5.0); ALKALINE PHOSPHATASE 62 U/L (46-116); ANION GAP 6 mmol/L (8-16); ASPARTATE AMINOTRANSFERASE 20 U/L (15-37); BILIRUBIN,TOTAL 0.5 mg/dL (0.1-1.0); CALCIUM, TOTAL 9.3 mg/dL (8.8-10.5); CARBON DIOXIDE 35 mmol/L (22-29); CHLORIDE 100 mmol/L (98-107); CHOL/HDL RATIO 2.4 (4.2-7.3); CHOLESTEROL 141 mg/dL (131-200); CREATININE 0.92 mg/dL (0.60-1.30); FREE T4 (FREE THYROXINE) 1.05 ng/dL (0.76-1.46); GLOMERULAR FILTR. RATE CALC > 60 mL/min (>60); GLUCOSE,RANDOM 99 mg/dL (70-110); HDL CHOLESTEROL 58 mg/dL (40-60); LDL CHOL (CALC.) 76 mg/dL (0-130); POTASSIUM 3.2 mmol/L (3.5-5.1); SODIUM SERUM 141 mmol/L (136-145); THYROID STIMULATING HORMONE 2.56 uIU/mL (0.36-3.74); TOTAL PROTEIN, SERUM 7.5 g/dL (6.4-8.2); TRIGLYCERIDES 37 mg/dL (15-150); UREA NITROGEN, BLOOD 16 mg/dL (7-18)
[2020-03-03] MEDS: PROMETHAZINE HCL 25 MG TABLET PO PRN (13:02)
[2020-03-03] MEDS: QUEtiapine FUMARATE 200 MG ER TABLET PO SCH (19:41)
[2020-03-04 04:27] VITALS: BP 129/84
[2020-03-04] MEDS: MULTIVITAMINS WITH MINERALS, THERAPEUTIC TABLET PO SCH (09:25)
[2020-03-04] MEDS: FOLIC ACID 1 MG TABLET PO SCH (09:25)
[2020-03-04] MEDS: THIAMINE 100 MG TABLET PO SCH ×2 (09:25→16:47)
[2020-03-04 09:43] VITALS: BP 136/98
[2020-03-04 16:15] VITALS: BP 143/79
[2020-03-04] MEDS ORDERED: OLANZapine 5 MG RAPDIS TABLET PO PRN (17:00)
[2020-03-04] MEDS ORDERED: POTASSIUM CHLORIDE 20 MEQ ER TABLET PO ONE (18:00)
[2020-03-05 04:10] VITALS: BP 120/81
[2020-03-05 08:23] VITALS: BP 139/90
[2020-03-05] MEDS: FOLIC ACID 1 MG TABLET PO SCH (08:25)
[2020-03-05] MEDS: MULTIVITAMINS WITH MINERALS, THERAPEUTIC TABLET PO SCH (08:25)
[2020-03-05] MEDS: THIAMINE 100 MG TABLET PO SCH ×2 (08:25→16:35)
[2020-03-05] MEDS ORDERED: CloZAPine 25 MG TABLET PO SCH (09:00)
[2020-03-05 16:35] VITALS: BP 163/96
[2020-03-06 05:20] VITALS: BP 132/79
[2020-03-06 08:08] VITALS: BP 137/95
[2020-03-06] MEDS ORDERED: CloZAPine 25 MG TABLET PO SCH ×2 (09:00→21:00)
[2020-03-06] MEDS: MULTIVITAMINS WITH MINERALS, THERAPEUTIC TABLET PO SCH (09:09)
[2020-03-06] MEDS: THIAMINE 100 MG TABLET PO SCH ×2 (09:09→16:14)
[2020-03-06] MEDS: FOLIC ACID 1 MG TABLET PO SCH (09:09)
[2020-03-06 16:18] VITALS: BP 137/97
[2020-03-06] MEDS: PROMETHAZINE HCL 25 MG TABLET PO PRN (18:43)
[2020-03-07 04:15] VITALS: BP 130/79
[2020-03-07] MEDS: FOLIC ACID 1 MG TABLET PO SCH (08:03)
[2020-03-07] MEDS: THIAMINE 100 MG TABLET PO SCH ×2 (08:03→16:26)
[2020-03-07] MEDS: MULTIVITAMINS WITH MINERALS, THERAPEUTIC TABLET PO SCH (08:03)
[2020-03-07 08:10] VITALS: BP 129/89
[2020-03-07] MEDS ORDERED: CloZAPine 25 MG TABLET PO SCH ×2 (09:00→21:00)
[2020-03-07 16:15] VITALS: BP 139/99
[2020-03-08 01:20] VITALS: BP 136/84
[2020-03-08] MEDS: THIAMINE 100 MG TABLET PO SCH ×2 (08:36→16:48)
[2020-03-08] MEDS: CloZAPine 25 MG TABLET PO SCH ×2 (08:36→20:17)
[2020-03-08] MEDS: MULTIVITAMINS WITH MINERALS, THERAPEUTIC TABLET PO SCH (08:36)
[2020-03-08] MEDS: FOLIC ACID 1 MG TABLET PO SCH (08:36)
[2020-03-08 09:22] VITALS: BP 140/82
[2020-03-08 16:12] VITALS: BP 135/93
[2020-03-08] MEDS: QUEtiapine FUMARATE 300 MG TABLET PO SCH (20:17)
[2020-03-09 04:39] VITALS: BP 139/93
[2020-03-09] MEDS: MULTIVITAMINS WITH MINERALS, THERAPEUTIC TABLET PO SCH (08:33)
[2020-03-09] MEDS: CloZAPine 25 MG TABLET PO SCH ×2 (08:34→20:14)
[2020-03-09 08:37] VITALS: BP 140/90
[2020-03-09 16:09] VITALS: BP 130/81
[2020-03-09] MEDS: QUEtiapine FUMARATE 300 MG TABLET PO SCH (21:00)
[2020-03-10 03:34] VITALS: BP 134/88
[2020-03-10 08:28] VITALS: BP 134/72
[2020-03-10] MEDS: MULTIVITAMINS WITH MINERALS, THERAPEUTIC TABLET PO SCH (08:33)
[2020-03-10] MEDS ORDERED: CloZAPine 25 MG TABLET PO SCH (09:00)
[2020-03-10 16:20] VITALS: BP 139/90
[2020-03-10] MEDS: OLANZapine 5 MG RAPDIS TABLET PO SCH ×2 (20:58→21:00)
[2020-03-10] MEDS ORDERED: CloZAPine 100 MG TABLET PO SCH (21:00)
[2020-03-11 06:26] VITALS: BP 145/84
[2020-03-11 08:43] VITALS: BP 133/85
[2020-03-11] MEDS: MULTIVITAMINS WITH MINERALS, THERAPEUTIC TABLET PO SCH (08:54)
[2020-03-11] MEDS ORDERED: CloZAPine 25 MG TABLET PO SCH (09:00)
[2020-03-11] MEDS ORDERED: CloZAPine 100 MG TABLET PO SCH (21:00)
[2020-03-11] MEDS: OLANZapine 10 MG RAPDIS TABLET PO SCH ×2 (21:00→21:03)
[2020-03-12 01:22] VITALS: BP 138/86
[2020-03-12 08:07] VITALS: BP 111/100
[2020-03-12] MEDS: MULTIVITAMINS WITH MINERALS, THERAPEUTIC TABLET PO SCH (08:18)
[2020-03-12] MEDS: LISINOPRIL 10 MG TABLET PO SCH (08:18)
[2020-03-12] MEDS ORDERED: CloZAPine 25 MG TABLET PO SCH (09:00)
[2020-03-12 16:11] VITALS: BP 121/84
[2020-03-12] MEDS: OLANZapine 10 MG RAPDIS TABLET PO SCH (20:14)
[2020-03-12] MEDS ORDERED: CloZAPine 100 MG TABLET PO SCH (21:00)
[2020-03-13 08:08] LABS: BASOPHILS % (AUTO) 0.4 % (0.0-2.0); EOSINOPHILS % (AUTO) 1.2 % (1.0-6.0); HEMATOCRIT 35.2 % (41-53); HEMOGLOBIN 11.6 g/dL (13.5-17.5); LYMPHOCYTES # (AUTO) 1.8 K/uL (1.0-4.8); LYMPHOCYTES % (AUTO) 31.1 % (22.0-44.0); MEAN CORPUSCULAR HEMOGLOBIN 29.5 pg (26.0-34.0); MEAN CORPUSCULAR VOLUME 90 fL (80-100); MONOCYTES # (AUTO) 0.4 K/uL (0.1-1.0); MONOCYTES % (AUTO) 7.4 % (2.0-9.0); NEUTROPHILS # (AUTO) 3.4 K/uL (1.8-7.7); NEUTROPHILS % (AUTO) 59.9 % (40.0-70.0); PLATELET COUNT (AUTO) 370 K/uL (150-450); RED BLOOD CELL COUNT(AUTO) 3.92 MIL/uL (4.50-5.90); RED CELL DISTRIBUTION WIDTH 16.6 % (11.5-14.5)
[2020-03-13 09:00] VITALS: BP 141/89
[2020-03-13] MEDS ORDERED: CloZAPine 100 MG TABLET PO SCH (09:00)
[2020-03-13] MEDS: MULTIVITAMINS WITH MINERALS, THERAPEUTIC TABLET PO SCH (09:02)
[2020-03-13] MEDS: LORazepam 2 MG TABLET PO PRN ×2 (09:02→16:38)
[2020-03-13] MEDS: LISINOPRIL 10 MG TABLET PO SCH (09:02)
[2020-03-13] MEDS ORDERED: POTASSIUM CHLORIDE 20 MEQ ER TABLET PO ONE (12:45)
[2020-03-13 16:01] VITALS: BP 138/80
[2020-03-13] MEDS ORDERED: OLANZapine 10 MG RAPDIS TABLET PO SCH (21:00)
[2020-03-14 00:12] VITALS: BP 122/77
[2020-03-14 08:36] VITALS: BP 121/84
[2020-03-14] MEDS: OLANZapine 10 MG RAPDIS TABLET PO SCH (08:53)
[2020-03-14] MEDS: LISINOPRIL 10 MG TABLET PO SCH (08:53)
[2020-03-14] MEDS: MULTIVITAMINS WITH MINERALS, THERAPEUTIC TABLET PO SCH (08:54)
[2020-03-14] MEDS ORDERED: CloZAPine 25 MG TABLET PO SCH (09:00)
[2020-03-14 16:09] VITALS: BP 131/78
[2020-03-14] MEDS ORDERED: POTASSIUM CHLORIDE 20 MEQ ER TABLET PO ONE (18:00)
[2020-03-15] MEDS: LISINOPRIL 10 MG TABLET PO SCH (08:28)
[2020-03-15] MEDS: OLANZapine 10 MG RAPDIS TABLET PO SCH (08:28)
[2020-03-15] MEDS: MULTIVITAMINS WITH MINERALS, THERAPEUTIC TABLET PO SCH (08:30)
[2020-03-15 09:00] VITALS: BP 137/89
[2020-03-15] MEDS ORDERED: CloZAPine 25 MG TABLET PO SCH ×3 (09:00→21:00)
[2020-03-15] MEDS ORDERED: POTASSIUM CHLORIDE 20 MEQ ER TABLET PO ONE ×2 (09:00→17:00)
[2020-03-15 16:06] VITALS: BP 147/91
[2020-03-15] MEDS: ACETAMINOPHEN 325 MG TABLET PO PRN (16:45)
[2020-03-15] MEDS ORDERED: CloZAPine 100 MG TABLET PO SCH (21:00)
[2020-03-16 05:20] VITALS: BP 133/88
[2020-03-16 08:01] VITALS: BP 107/74
[2020-03-16] MEDS: OLANZapine 10 MG RAPDIS TABLET PO SCH (08:02)
[2020-03-16] MEDS: LISINOPRIL 10 MG TABLET PO SCH (08:02)
[2020-03-16] MEDS: MULTIVITAMINS WITH MINERALS, THERAPEUTIC TABLET PO SCH (08:02)
[2020-03-16] MEDS ORDERED: CloZAPine 25 MG TABLET PO SCH ×3 (09:00→21:00)
[2020-03-16 16:15] VITALS: BP 107/69
[2020-03-16] MEDS ORDERED: CloZAPine 100 MG TABLET PO SCH (21:00)
[2020-03-17 06:21] VITALS: BP 110/73
[2020-03-17 08:05] VITALS: BP 134/68
[2020-03-17] MEDS: LISINOPRIL 10 MG TABLET PO SCH (08:11)
[2020-03-17] MEDS: OLANZapine 10 MG RAPDIS TABLET PO SCH (08:11)
[2020-03-17] MEDS: CloZAPine 25 MG TABLET PO SCH ×2 (08:12→20:05)
[2020-03-17] MEDS: MULTIVITAMINS WITH MINERALS, THERAPEUTIC TABLET PO SCH (08:12)
[2020-03-17] MEDS ORDERED: CloZAPine 100 MG TABLET PO SCH ×2 (09:00→21:00)
[2020-03-17] MEDS: LORazepam 2 MG TABLET PO PRN (16:06)
[2020-03-17 16:09] VITALS: BP 139/92
[2020-03-18 06:20] VITALS: BP 128/85
[2020-03-18 08:08] VITALS: BP 136/72
[2020-03-18] MEDS: CloZAPine 25 MG TABLET PO SCH ×2 (08:32→20:47)
[2020-03-18] MEDS: MULTIVITAMINS WITH MINERALS, THERAPEUTIC TABLET PO SCH (08:32)
[2020-03-18] MEDS: LISINOPRIL 10 MG TABLET PO SCH (08:32)
[2020-03-18] MEDS: OLANZapine 10 MG RAPDIS TABLET PO SCH (08:33)
[2020-03-18 16:17] VITALS: BP 131/76
[2020-03-19 08:26] VITALS: BP 130/91
[2020-03-19 08:28] LABS: BASOPHILS % (AUTO) 0.3 % (0.0-2.0); EOSINOPHILS % (AUTO) 1.6 % (1.0-6.0); HEMATOCRIT 34.8 % (41-53); HEMOGLOBIN 11.5 g/dL (13.5-17.5); LYMPHOCYTES # (AUTO) 2.5 K/uL (1.0-4.8); LYMPHOCYTES % (AUTO) 37.5 % (22.0-44.0); MEAN CORPUSCULAR HEMOGLOBIN 30.2 pg (26.0-34.0); MEAN CORPUSCULAR HGB CONC 33.1 G/dL (31.0-37.0); MEAN CORPUSCULAR VOLUME 91 fL (80-100); MONOCYTES # (AUTO) 0.5 K/uL (0.1-1.0); NEUTROPHILS # (AUTO) 3.5 K/uL (1.8-7.7); NEUTROPHILS % (AUTO) 52.6 % (40.0-70.0); PLATELET COUNT (AUTO) 298 K/uL (150-450); RED BLOOD CELL COUNT(AUTO) 3.82 MIL/uL (4.50-5.90); RED CELL DISTRIBUTION WIDTH 17.2 % (11.5-14.5)
[2020-03-19 08:38] LABS: ANION GAP 5 mmol/L (8-16); CALCIUM, TOTAL 8.9 mg/dL (8.8-10.5); CARBON DIOXIDE 31 mmol/L (22-29); CHLORIDE 98 mmol/L (98-107); CREATININE 0.96 mg/dL (0.60-1.30); GLOMERULAR FILTR. RATE CALC > 60 mL/min (>60); GLUCOSE,RANDOM 103 mg/dL (70-110); POTASSIUM 3.7 mmol/L (3.5-5.1); SODIUM SERUM 134 mmol/L (136-145); UREA NITROGEN, BLOOD 21 mg/dL (7-18)
[2020-03-19] MEDS: LISINOPRIL 10 MG TABLET PO SCH (08:54)
[2020-03-19] MEDS: MULTIVITAMINS WITH MINERALS, THERAPEUTIC TABLET PO SCH (08:54)
[2020-03-19] MEDS ORDERED: CloZAPine 25 MG TABLET PO SCH (09:00)
[2020-03-19 16:05] VITALS: BP 118/62
[2020-03-19] MEDS ORDERED: CloZAPine 100 MG TABLET PO SCH (21:00)
[2020-03-20 03:39] VITALS: BP 110/72
[2020-03-20] MEDS: LISINOPRIL 10 MG TABLET PO SCH (08:53)
[2020-03-20] MEDS: MULTIVITAMINS WITH MINERALS, THERAPEUTIC TABLET PO SCH (08:53)
[2020-03-20] MEDS ORDERED: CloZAPine 25 MG TABLET PO SCH (09:00)
[2020-03-20 09:33] VITALS: BP 135/72
[2020-03-20] MEDS ORDERED: CloZAPine 100 MG TABLET PO SCH (21:00)
[2020-03-21] MEDS: LISINOPRIL 10 MG TABLET PO SCH (08:16)
[2020-03-21] MEDS: MULTIVITAMINS WITH MINERALS, THERAPEUTIC TABLET PO SCH (08:16)
[2020-03-21] MEDS ORDERED: CloZAPine 25 MG TABLET PO SCH (09:00)
[2020-03-21 17:08] VITALS: BP 122/71
[2020-03-21] MEDS: LORazepam 0.5 MG TABLET PO PRN (20:24)
[2020-03-21] MEDS ORDERED: CloZAPine 100 MG TABLET PO SCH (21:00)
[2020-03-22 04:15] VITALS: BP 127/90
[2020-03-22] MEDS ORDERED: FAMOTIDINE 20 MG TABLET PO SCH (06:30)
[2020-03-22] MEDS: LISINOPRIL 10 MG TABLET PO SCH (08:08)
[2020-03-22] MEDS: LORazepam 0.5 MG TABLET PO PRN ×2 (08:08→16:30)
[2020-03-22] MEDS: MULTIVITAMINS WITH MINERALS, THERAPEUTIC TABLET PO SCH (08:08)
[2020-03-22] MEDS: CloZAPine 100 MG TABLET PO SCH ×2 (08:08→20:12)
[2020-03-22 08:11] VITALS: BP 131/75
[2020-03-22 16:05] VITALS: BP 134/87
[2020-03-23] MEDS: OMEPRAZOLE 20 MG CAPSULE PO SCH (06:14)
[2020-03-23] MEDS: CloZAPine 100 MG TABLET PO SCH ×2 (09:39→20:35)
[2020-03-23] MEDS: LISINOPRIL 10 MG TABLET PO SCH (09:39)
[2020-03-23] MEDS: MULTIVITAMINS WITH MINERALS, THERAPEUTIC TABLET PO SCH (09:40)
[2020-03-23 16:06] VITALS: BP 116/68
[2020-03-23] MEDS: LORazepam 0.5 MG TABLET PO PRN (16:45)
[2020-03-23] MEDS ORDERED: POTASSIUM CHLORIDE 20 MEQ ER TABLET PO ONE (17:15)
[2020-03-24] MEDS: OMEPRAZOLE 20 MG CAPSULE PO SCH (06:16)
[2020-03-24 08:28] VITALS: BP 134/74
[2020-03-24] MEDS: LISINOPRIL 10 MG TABLET PO SCH (08:58)
[2020-03-24] MEDS: MULTIVITAMINS WITH MINERALS, THERAPEUTIC TABLET PO SCH (08:58)
[2020-03-24] MEDS ORDERED: CloZAPine 25 MG TABLET PO SCH (09:00)
[2020-03-24] MEDS ORDERED: POTASSIUM CHLORIDE 20 MEQ ER TABLET PO ONE ×2 (09:00→17:00)
[2020-03-24 16:08] VITALS: BP 134/72
[2020-03-24] MEDS ORDERED: CloZAPine 100 MG TABLET PO SCH (21:00)
[2020-03-25] MEDS: OMEPRAZOLE 20 MG CAPSULE PO SCH (06:10)
[2020-03-25] MEDS ORDERED: CloZAPine 25 MG TABLET PO SCH (09:00)
[2020-03-25 09:01] VITALS: BP 128/70
[2020-03-25] MEDS: LISINOPRIL 10 MG TABLET PO SCH (09:01)
[2020-03-25] MEDS: MULTIVITAMINS WITH MINERALS, THERAPEUTIC TABLET PO SCH (09:01)
[2020-03-25 16:04] VITALS: BP 135/88
[2020-03-25] MEDS: PROMETHAZINE HCL 6.25 MG/5 ML SYRUP ORAL.SYG PO SCH ×2 (16:39→20:51)
[2020-03-25] MEDS ORDERED: CloZAPine 100 MG TABLET PO SCH (21:00)
[2020-03-26] MEDS: OMEPRAZOLE 20 MG CAPSULE PO SCH (06:30)
[2020-03-26] MEDS: MULTIVITAMINS WITH MINERALS, THERAPEUTIC TABLET PO SCH (08:47)
[2020-03-26] MEDS: LISINOPRIL 10 MG TABLET PO SCH (08:48)
[2020-03-26] MEDS: PROMETHAZINE HCL 6.25 MG/5 ML SYRUP ORAL.SYG PO SCH ×4 (08:50→20:34)
[2020-03-26] MEDS ORDERED: CloZAPine 100 MG TABLET PO SCH ×2 (09:00→21:00)
[2020-03-26] MEDS ORDERED: HALOPERIDOL 5 MG TABLET PO PRN (13:30)
[2020-03-26 16:04] VITALS: BP 147/87
[2020-03-26] MEDS: HALOPERIDOL 5 MG TABLET PO SCH (17:03)
[2020-03-27 03:02] VITALS: BP 138/81
[2020-03-27] MEDS: OMEPRAZOLE 20 MG CAPSULE PO SCH (06:28)
[2020-03-27 08:00] VITALS: BP 144/93
[2020-03-27] MEDS: MULTIVITAMINS WITH MINERALS, THERAPEUTIC TABLET PO SCH (08:15)
[2020-03-27] MEDS: HALOPERIDOL 5 MG TABLET PO SCH ×3 (08:15→16:28)
[2020-03-27] MEDS: LISINOPRIL 10 MG TABLET PO SCH (08:15)
[2020-03-27] MEDS: PROMETHAZINE HCL 6.25 MG/5 ML SYRUP ORAL.SYG PO SCH ×4 (08:16→20:27)
[2020-03-28 02:56] VITALS: BP 139/81
[2020-03-28] MEDS: OMEPRAZOLE 20 MG CAPSULE PO SCH (06:15)
[2020-03-28] MEDS: LISINOPRIL 10 MG TABLET PO SCH (08:05)
[2020-03-28] MEDS: PROMETHAZINE HCL 6.25 MG/5 ML SYRUP ORAL.SYG PO SCH ×4 (08:05→21:00)
[2020-03-28] MEDS: HALOPERIDOL 5 MG TABLET PO SCH ×3 (08:06→16:29)
[2020-03-28] MEDS: MULTIVITAMINS WITH MINERALS, THERAPEUTIC TABLET PO SCH (08:06)
[2020-03-28 08:39] VITALS: BP 118/76
[2020-03-28 16:03] VITALS: BP 120/75
[2020-03-29] MEDS: OMEPRAZOLE 20 MG CAPSULE PO SCH (06:02)
[2020-03-29 08:10] LABS: BASOPHILS % (AUTO) 0.4 % (0.0-2.0); EOSINOPHILS % (AUTO) 2.7 % (1.0-6.0); HEMATOCRIT 35.5 % (41-53); HEMOGLOBIN 11.8 g/dL (13.5-17.5); LYMPHOCYTES # (AUTO) 1.7 K/uL (1.0-4.8); LYMPHOCYTES % (AUTO) 38.4 % (22.0-44.0); MEAN CORPUSCULAR HEMOGLOBIN 30.8 pg (26.0-34.0); MEAN CORPUSCULAR HGB CONC 33.2 G/dL (31.0-37.0); MEAN CORPUSCULAR VOLUME 93 fL (80-100); MONOCYTES # (AUTO) 0.4 K/uL (0.1-1.0); MONOCYTES % (AUTO) 8.2 % (2.0-9.0); NEUTROPHILS # (AUTO) 2.2 K/uL (1.8-7.7); NEUTROPHILS % (AUTO) 50.3 % (40.0-70.0); PLATELET COUNT (AUTO) 201 K/uL (150-450); RED BLOOD CELL COUNT(AUTO) 3.82 MIL/uL (4.50-5.90); RED CELL DISTRIBUTION WIDTH 17.1 % (11.5-14.5)
[2020-03-29] MEDS: MULTIVITAMINS WITH MINERALS, THERAPEUTIC TABLET PO SCH (08:15)
[2020-03-29] MEDS: HALOPERIDOL 5 MG TABLET PO SCH ×3 (08:15→18:53)
[2020-03-29] MEDS: LISINOPRIL 10 MG TABLET PO SCH (08:15)
[2020-03-29] MEDS: PROMETHAZINE HCL 6.25 MG/5 ML SYRUP ORAL.SYG PO SCH ×4 (08:16→21:00)
[2020-03-29 08:40] VITALS: BP 110/71
[2020-03-29] MEDS: POTASSIUM CHLORIDE 20 MEQ ER TABLET PO SCH ×2 (13:12→21:00)
[2020-03-29 16:06] VITALS: BP 109/84
[2020-03-30] MEDS: OMEPRAZOLE 20 MG CAPSULE PO SCH (06:18)
[2020-03-30 08:16] VITALS: BP 116/79
[2020-03-30] MEDS: POTASSIUM CHLORIDE 20 MEQ ER TABLET PO SCH ×2 (09:14→20:35)
[2020-03-30] MEDS: MULTIVITAMINS WITH MINERALS, THERAPEUTIC TABLET PO SCH (09:14)
[2020-03-30] MEDS: LISINOPRIL 10 MG TABLET PO SCH (09:14)
[2020-03-30] MEDS: PROMETHAZINE HCL 6.25 MG/5 ML SYRUP ORAL.SYG PO SCH ×5 (09:14→21:00)
[2020-03-30] MEDS: HALOPERIDOL 5 MG TABLET PO SCH ×3 (09:14→13:00)
[2020-03-30 16:05] VITALS: BP 108/78
[2020-03-30] MEDS: HALOPERIDOL 10 MG TABLET PO SCH (16:45)
[2020-03-30] MEDS: LORazepam 0.5 MG TABLET PO PRN (20:35)
[2020-03-30] MEDS: PROMETHAZINE HCL 25 MG TABLET PO PRN (20:35)
[2020-03-30] MEDS: ZOLPIDEM TARTRATE 10 MG TABLET PO PRN (20:35)
[2020-03-31 01:28] VITALS: BP 112/73
[2020-03-31] MEDS: OMEPRAZOLE 20 MG CAPSULE PO SCH (06:08)
[2020-03-31 08:10] VITALS: BP 130/78
[2020-03-31] MEDS: HALOPERIDOL 10 MG TABLET PO SCH ×2 (08:45→16:56)
[2020-03-31] MEDS: MULTIVITAMINS WITH MINERALS, THERAPEUTIC TABLET PO SCH (08:45)
[2020-03-31] MEDS: PROMETHAZINE HCL 6.25 MG/5 ML SYRUP ORAL.SYG PO SCH ×4 (08:45→20:55)
[2020-03-31] MEDS: LISINOPRIL 10 MG TABLET PO SCH (08:45)
[2020-03-31 16:00] VITALS: BP 126/82
[2020-03-31] MEDS: DIVALPROEX SODIUM 250 MG ER TABLET PO SCH (20:54)
[2020-04-01 04:31] VITALS: BP 120/81
[2020-04-01] MEDS: OMEPRAZOLE 20 MG CAPSULE PO SCH (06:47)
[2020-04-01 08:07] VITALS: BP 138/91
[2020-04-01] MEDS: LISINOPRIL 10 MG TABLET PO SCH (08:39)
[2020-04-01] MEDS: HALOPERIDOL 10 MG TABLET PO SCH ×2 (08:39→17:06)
[2020-04-01] MEDS: MULTIVITAMINS WITH MINERALS, THERAPEUTIC TABLET PO SCH (08:39)
[2020-04-01] MEDS: PROMETHAZINE HCL 6.25 MG/5 ML SYRUP ORAL.SYG PO SCH ×3 (08:40→20:43)
[2020-04-01 16:08] VITALS: BP 128/72
[2020-04-01] MEDS: DIVALPROEX SODIUM 250 MG ER TABLET PO SCH (20:42)
[2020-04-02 04:48] VITALS: BP 134/86
[2020-04-02] MEDS: OMEPRAZOLE 20 MG CAPSULE PO SCH (06:08)
[2020-04-02] MEDS: LISINOPRIL 10 MG TABLET PO SCH (08:03)
[2020-04-02] MEDS: MULTIVITAMINS WITH MINERALS, THERAPEUTIC TABLET PO SCH (08:03)
[2020-04-02] MEDS: HALOPERIDOL 10 MG TABLET PO SCH ×3 (08:03→16:26)
[2020-04-02 08:55] VITALS: BP 140/77
[2020-04-02] MEDS: PROMETHAZINE HCL 6.25 MG/5 ML SYRUP ORAL.SYG PO SCH ×5 (09:00→22:44)
[2020-04-02 16:06] VITALS: BP 125/71
[2020-04-02] MEDS: DIVALPROEX SODIUM 250 MG ER TABLET PO SCH (20:31)
[2020-04-03 00:48] VITALS: BP 131/82
[2020-04-03] MEDS: OMEPRAZOLE 20 MG CAPSULE PO SCH (06:28)
[2020-04-03] MEDS: MULTIVITAMINS WITH MINERALS, THERAPEUTIC TABLET PO SCH (07:57)
[2020-04-03] MEDS: LISINOPRIL 10 MG TABLET PO SCH (07:57)
[2020-04-03] MEDS: HALOPERIDOL 10 MG TABLET PO SCH ×3 (07:57→18:45)
[2020-04-03] MEDS: PROMETHAZINE HCL 6.25 MG/5 ML SYRUP ORAL.SYG PO SCH ×4 (07:58→20:24)
[2020-04-03 08:06] VITALS: BP 131/84
[2020-04-03 16:08] VITALS: BP 139/75
[2020-04-03] MEDS: DIVALPROEX SODIUM 250 MG ER TABLET PO SCH (20:19)
[2020-04-04] MEDS: OMEPRAZOLE 20 MG CAPSULE PO SCH (06:02)
[2020-04-04 08:10] VITALS: BP 128/77
[2020-04-04] MEDS: HALOPERIDOL 10 MG TABLET PO SCH ×3 (08:12→16:24)
[2020-04-04] MEDS: MULTIVITAMINS WITH MINERALS, THERAPEUTIC TABLET PO SCH (08:12)
[2020-04-04] MEDS: PROMETHAZINE HCL 6.25 MG/5 ML SYRUP ORAL.SYG PO SCH ×4 (08:12→20:09)
[2020-04-04] MEDS: LISINOPRIL 10 MG TABLET PO SCH (08:12)
[2020-04-04 16:08] VITALS: BP 130/80
[2020-04-04] MEDS: DIVALPROEX SODIUM 250 MG ER TABLET PO SCH (20:06)
[2020-04-05 02:51] VITALS: BP 134/87
[2020-04-05] MEDS: OMEPRAZOLE 20 MG CAPSULE PO SCH (06:18)
[2020-04-05] MEDS: LISINOPRIL 10 MG TABLET PO SCH (08:09)
[2020-04-05] MEDS: PROMETHAZINE HCL 6.25 MG/5 ML SYRUP ORAL.SYG PO SCH ×4 (08:09→20:08)
[2020-04-05] MEDS: MULTIVITAMINS WITH MINERALS, THERAPEUTIC TABLET PO SCH (08:09)
[2020-04-05] MEDS: HALOPERIDOL 10 MG TABLET PO SCH ×3 (08:09→16:56)
[2020-04-05 16:24] VITALS: BP 139/96
[2020-04-05] MEDS: DIVALPROEX SODIUM 250 MG ER TABLET PO SCH (20:08)
[2020-04-06 02:38] VITALS: BP 136/81
[2020-04-06] MEDS: OMEPRAZOLE 20 MG CAPSULE PO SCH (06:00)
[2020-04-06] MEDS: MULTIVITAMINS WITH MINERALS, THERAPEUTIC TABLET PO SCH (08:03)
[2020-04-06] MEDS: HALOPERIDOL 10 MG TABLET PO SCH ×4 (08:03→21:00)
[2020-04-06] MEDS: PROMETHAZINE HCL 6.25 MG/5 ML SYRUP ORAL.SYG PO SCH ×4 (08:03→21:00)
[2020-04-06] MEDS: LISINOPRIL 10 MG TABLET PO SCH (08:03)
[2020-04-06 08:11] VITALS: BP 135/91
[2020-04-06 16:04] VITALS: BP 136/72
[2020-04-06] MEDS: DIVALPROEX SODIUM 250 MG ER TABLET PO SCH (21:00)
[2020-04-07 02:09] VITALS: BP 133/84
[2020-04-07] MEDS: OMEPRAZOLE 20 MG CAPSULE PO SCH (06:30)
[2020-04-07] MEDS: HALOPERIDOL 10 MG TABLET PO SCH ×4 (08:08→22:27)
[2020-04-07] MEDS: LISINOPRIL 10 MG TABLET PO SCH (08:08)
[2020-04-07] MEDS: MULTIVITAMINS WITH MINERALS, THERAPEUTIC TABLET PO SCH (08:08)
[2020-04-07] MEDS: PROMETHAZINE HCL 6.25 MG/5 ML SYRUP ORAL.SYG PO SCH ×4 (08:10→22:29)
[2020-04-07 08:52] VITALS: BP 140/90
[2020-04-07] MEDS: DIVALPROEX SODIUM 250 MG ER TABLET PO SCH (22:27)
[2020-04-08 06:10] VITALS: BP 138/88
[2020-04-08] MEDS: OMEPRAZOLE 20 MG CAPSULE PO SCH (06:30)
[2020-04-08 08:05] VITALS: BP 134/94
[2020-04-08] MEDS: MULTIVITAMINS WITH MINERALS, THERAPEUTIC TABLET PO SCH (08:57)
[2020-04-08] MEDS: LISINOPRIL 10 MG TABLET PO SCH (08:57)
[2020-04-08] MEDS: HALOPERIDOL 10 MG TABLET PO SCH ×3 (08:57→20:55)
[2020-04-08] MEDS: PROMETHAZINE HCL 6.25 MG/5 ML SYRUP ORAL.SYG PO SCH ×4 (08:59→20:59)
[2020-04-08 16:07] VITALS: BP 139/96
[2020-04-08] MEDS: DIVALPROEX SODIUM 250 MG ER TABLET PO SCH (20:55)
[2020-04-09 03:27] VITALS: BP 130/86
[2020-04-09] MEDS: OMEPRAZOLE 20 MG CAPSULE PO SCH (06:17)
[2020-04-09 08:11] VITALS: BP 133/95
[2020-04-09] MEDS: LISINOPRIL 10 MG TABLET PO SCH (08:26)
[2020-04-09] MEDS: MULTIVITAMINS WITH MINERALS, THERAPEUTIC TABLET PO SCH (08:26)
[2020-04-09] MEDS: PROMETHAZINE HCL 6.25 MG/5 ML SYRUP ORAL.SYG PO SCH ×4 (08:26→20:35)
[2020-04-09] MEDS ORDERED: DIVA-85 PO (13:31)
[2020-04-09] MEDS ORDERED: HALO10 PO (13:31)
[2020-04-09 16:05] VITALS: BP 138/83
[2020-04-09] MEDS: DIVALPROEX SODIUM 250 MG ER TABLET PO SCH (20:34)
[2020-04-09] MEDS: HALOPERIDOL 10 MG TABLET PO SCH (20:34)
[2020-04-10 04:12] VITALS: BP 141/90
[2020-04-10] MEDS: OMEPRAZOLE 20 MG CAPSULE PO SCH (06:06)
[2020-04-10] MEDS: LISINOPRIL 10 MG TABLET PO SCH (09:17)
[2020-04-10] MEDS: MULTIVITAMINS WITH MINERALS, THERAPEUTIC TABLET PO SCH (09:17)
[2020-04-10] MEDS: PROMETHAZINE HCL 6.25 MG/5 ML SYRUP ORAL.SYG PO SCH ×4 (09:17→20:48)
[2020-04-10 09:41] VITALS: BP 133/91
[2020-04-10 16:05] VITALS: BP 132/81
[2020-04-10] MEDS: DIVALPROEX SODIUM 250 MG ER TABLET PO SCH (20:48)
[2020-04-10] MEDS: HALOPERIDOL 10 MG TABLET PO SCH (20:48)
[2020-04-11 00:14] VITALS: BP 138/95
[2020-04-11] MEDS: OMEPRAZOLE 20 MG CAPSULE PO SCH (06:40)
[2020-04-11] MEDS: MULTIVITAMINS WITH MINERALS, THERAPEUTIC TABLET PO SCH (08:06)
[2020-04-11] MEDS: PROMETHAZINE HCL 6.25 MG/5 ML SYRUP ORAL.SYG PO SCH ×4 (08:06→21:00)
[2020-04-11] MEDS: LISINOPRIL 10 MG TABLET PO SCH (08:06)
[2020-04-11 08:23] VITALS: BP 134/90
[2020-04-11 16:08] VITALS: BP 135/96
[2020-04-11] MEDS: HALOPERIDOL 10 MG TABLET PO SCH (21:00)
[2020-04-11] MEDS: DIVALPROEX SODIUM 250 MG ER TABLET PO SCH (21:00)
[2020-04-12 03:33] VITALS: BP 133/91
[2020-04-12] MEDS: OMEPRAZOLE 20 MG CAPSULE PO SCH (06:13)
[2020-04-12] MEDS: PROMETHAZINE HCL 6.25 MG/5 ML SYRUP ORAL.SYG PO SCH ×4 (08:16→20:06)
[2020-04-12] MEDS: MULTIVITAMINS WITH MINERALS, THERAPEUTIC TABLET PO SCH (08:16)
[2020-04-12] MEDS: LISINOPRIL 10 MG TABLET PO SCH (08:16)
[2020-04-12 08:20] VITALS: BP 139/83
[2020-04-12 16:08] VITALS: BP 131/77
[2020-04-12] MEDS: DIVALPROEX SODIUM 250 MG ER TABLET PO SCH (20:06)
[2020-04-12] MEDS: HALOPERIDOL 10 MG TABLET PO SCH (20:06)
[2020-04-13 01:30] VITALS: BP 132/81
[2020-04-13] MEDS: OMEPRAZOLE 20 MG CAPSULE PO SCH (06:00)
[2020-04-13 08:20] VITALS: BP 159/89
[2020-04-13] MEDS: PROMETHAZINE HCL 6.25 MG/5 ML SYRUP ORAL.SYG PO SCH ×4 (08:28→20:37)
[2020-04-13] MEDS: LISINOPRIL 10 MG TABLET PO SCH (08:28)
[2020-04-13] MEDS: MULTIVITAMINS WITH MINERALS, THERAPEUTIC TABLET PO SCH (08:28)
[2020-04-13] MEDS ORDERED: DIVA-85 PO (14:43)
[2020-04-13] MEDS ORDERED: OMEG-135 PO (14:43)
[2020-04-13] MEDS ORDERED: HALO10 PO (14:43)
[2020-04-13 16:18] VITALS: BP 137/91
[2020-04-13] MEDS: DIVALPROEX SODIUM 250 MG ER TABLET PO SCH (20:37)
[2020-04-13] MEDS: HALOPERIDOL 10 MG TABLET PO SCH (20:37)
[2020-04-14] MEDS: OMEPRAZOLE 20 MG CAPSULE PO SCH (06:03)
[2020-04-14 06:26] VITALS: BP 127/85
[2020-04-14 08:16] VITALS: BP 126/84
[2020-04-14] MEDS: PROMETHAZINE HCL 6.25 MG/5 ML SYRUP ORAL.SYG PO SCH ×3 (08:19→16:21)
[2020-04-14] MEDS: MULTIVITAMINS WITH MINERALS, THERAPEUTIC TABLET PO SCH (08:19)
[2020-04-14] MEDS: LISINOPRIL 10 MG TABLET PO SCH (08:19)
[2020-04-14] MEDS ORDERED: OMEP20 PO (08:39)
[2020-04-14] MEDS ORDERED: LISI-661 PO (08:39)
[2020-04-14 16:16] VITALS: BP 131/89
== END 2020-04-14 19:30 | disposition home or self-care (01) | DRG 750 ==
LOC: B2S 02-28 00:30 → B3A 02-28 09:00
PROVIDERS: ADMIT Psychiatry & Neurology Psychiatry; ATTEND Psychiatry & Neurology Psychiatry
DX: F20.0 Paranoid schizophrenia (principal); D64.9 Anemia, unspecified; E55.9 Vitamin D deficiency, unspecified; E78.5 Hyperlipidemia, unspecified; E87.6 Hypokalemia; I10 Essential (primary) hypertension; K21.9 Gastro-esophageal reflux disease without esophagitis; J45.909 Unspecified asthma, uncomplicated; K59.00 Constipation, unspecified; Z59.9 Problem related to housing and economic circumstances, unspecified; Z65.3 Problems related to other legal circumstances; Z55.9 Problems related to education and literacy, unspecified; Z79.899 Other long term (current) drug therapy; Z91.14 Patient's other noncompliance with medication regimen; Z91.19 Patient's noncompliance with other medical treatment and regimen; Z28.21 Immunization not carried out because of patient refusal; Z59.0 Homelessness
CPT/HCPCS: 80307; 83036; 84132; 84439; 84443; 87081; 90732